=== PATIENT | female | born 1995 | race Caucasian/White ===

== ENCOUNTER → 2017-03-23 | Outpatient (CLI) | payer OTHER ==
--- NOTE | 2017-03-24 08:02 | USB ---
Reason for exam: clinical finding. Indicated problem(s): lump or thickening in the left breast. Physical Findings: Nurse Summary: A 1cm nodule in the left breast at 11 o'clock (nurse mj). US Breast Limited LT Left breast ultrasound demonstrates a 2.0 x 2.1 x 1.3cm oval, circumscribed, solid, hypoechoic lesion at 10 o'clock, posterior through transmission is present. This is most suggestive of a benign fibroadenoma for which a 6 month follow up is recommended. These results were verbally communicated with the patient and result sheet given to the patient on 03/23/17. ASSESSMENT: Probably benign, BI-RAD 3 RECOMMENDATION: 1. Ultrasound of the left breast in 6 months. 2. Surgical consultation of the left breast. Excision can be performed if symptomatic. GASTON
== END | disposition home or self-care (01) ==
LOC: RADUSWWP 13:00
PROVIDERS: ATTEND Family Medicine
DX: N63.20 Unspecified lump in the left breast, unspecified quadrant (principal)

== ENCOUNTER 2017-10-22 17:42 | Emergency (ER) | payer OTHER ==
[2017-10-22 18:04] VITALS: BP 126/68; PULSE 79; RESP 18; TEMP 97.2
--- NOTE | 2017-10-22 19:01 | ED ---
Skin/Abscess/FB HPI - General Chief complaint: Skin/Abscess/Foreign Body Stated complaint: left breast pain Time Seen by Provider: 10/22/17 18:44 Source: patient, RN notes reviewed Mode of arrival: ambulatory Limitations: no limitations - History of Present Illness Initial comments: This is a 22-year-old female who presents to the emergency department with chief complaint of left breast pain. Patient states that a year and a half ago she was diagnosed with a fibroadenoma of the left breast. She states that she did have an ultrasound performed at that time. She was referred to several surgeons by her primary care provider but never followed up. Patient states that she is on the end of her current menstrual cycle. She states that yesterday she developed some pain to the lump in her left breast. She denies any nipple discharge, changes in size of the lump or dimpling of the breast. Denies any recent fevers or chills. Denies chest pain or shortness of breath, abdominal pain, nausea vomiting. - Related Data Allergies Allergy/AdvReac Type Severity Reaction Status Date / Time No Known Allergies Allergy Verified 10/22/17 18:04 Review of Systems ROS Statement: Those systems with pertinent positive or pertinent negative responses have been documented in the HPI. ROS Other: All systems not noted in ROS Statement are negative. Past Medical History Past Medical History: No Reported History History of Any Multi-Drug Resistant Organisms: None Reported Past Surgical History: No Surgical Hx Reported Past Psychological History: No Psychological Hx Reported Smoking Status: Current every day smoker Past Alcohol Use History: None Reported Past Drug Use History: None Reported General Exam - General Exam Comments Initial Comments: General: Awake and alert, well-developed; in no apparent distress. HEENT: Head atraumatic, normocephalic. Pupils are equal, round and reactive to light. Extraocular movements intact. Oropharynx moist without erythema or exudate. Neck: Supple. Normal ROM. Cardiovascular: Regular rate and rhythm. No murmurs, rubs or gallops. Chest symmetrical. Chest Wall: Tender, mobile lump, measuring approximately 2 cm in diameter, at approximately noon superior to the left nipple. Respiratory: Lungs clear to auscultation bilaterally. No wheezes, rales or rhonchi. Normal respiratory effort with no use of accessory muscles. Musculoskeletal: Normal ROM, no tenderness bilateral upper and lower extremities. Ambulating normally. Skin: [place], warm and dry without rashes or lesions. Neurological: Alert and oriented x3. CN II-XII grossly intact. Speech is fluent and answers are appropriate. No focal neuro deficits. Psychiatric: Normal mood and affect. No overt signs of depression or anxiety noted. Limitations: no limitations Course Vital Signs 10/22/17 18:00 Temperature 97.2 F L Pulse Rate 79 Respiratory 18 Rate Blood Pressure 126/68 O2 Sat by Pulse 97 Oximetry Medical Decision Making - Medical Decision Making This is a 22-year-old female who presents to the emergency department with chief complaint of tender left breast lump. Patient was diagnosed with fibroadenoma the left breast a year and a half ago. She states that yesterday it became painful. On physical examination, there is a tender, mobile lump in the left breast. Patient will be given an order for a mammogram and will be referred to Dr. Zeina Jessica. Patient's vital signs are stable and she is in no acute distress. She will be discharged home at this time. She is in agreement with plan and voices understanding. All questions were answered. Disposition Clinical Impression: Left breast mass Disposition: HOME SELF-CARE Condition: Good Instructions: Breast Mass (ED) Additional Instructions: Please follow-up with Dr. Zeina Jessica within 1-2 days. Please have mammogram performed. Please follow up with primary care provider within 1-2 days. Return to emergency department if symptoms should worsen or any concerns arise. Is patient prescribed a controlled substance at d/c from ED?: No Referrals: Maria De Jesus Bridges MD [Primary Care Provider] - 1-2 days Jennifer Jessica MD [STAFF PHYSICIAN] - 1-2 days Time of Disposition: 19:03
== END 2017-10-22 19:22 | disposition home or self-care (01) ==
LOC: EC 17:42
DX: N63.0 Unspecified lump in unspecified breast (principal); N64.4 Mastodynia; F17.200 Nicotine dependence, unspecified, uncomplicated
CPT/HCPCS: 99283

== ENCOUNTER 2019-03-29 14:12 | Emergency (ER) | payer OTHER ==
[2019-03-29 14:22] VITALS: RESP 20; TEMP 98
[2019-03-29] MEDS ORDERED: LIDOCAINE 1% INJ 10MG/ML (20 ML MDV) SQ ONE (14:30)
[2019-03-29] MEDS ORDERED: ACETAMINOPHEN TAB 500 MG TAB PO STA (14:30)
[2019-03-29] MEDS ORDERED: DIPH,PERTUS(ACELL)TETVAC-LF 0.5 ML VIAL IM ONE (14:32)
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
[2019-03-29 16:27] VITALS: BP 111/69; PULSE 75
== END 2019-03-29 16:27 | disposition home or self-care (01) ==
LOC: EC 14:12
DX: S21.111A Laceration without foreign body of right front wall of thorax without penetration into thoracic cavity, initial encounter (principal); Z87.891 Personal history of nicotine dependence; Z23 Encounter for immunization; X99.1XXA Assault by knife, initial encounter; Y93.89 Activity, other specified; Y92.009 Unspecified place in unspecified non-institutional (private) residence as the place of occurrence of the external cause
CPT/HCPCS: 90715; 99283; 12002; 90471; J2001

== ENCOUNTER → 2020-08-16 | Outpatient (CLI) | payer OTHER | END | disposition home or self-care (01) | LOC: LABWHC1 16:13 | PROVIDERS: ATTEND Family Medicine | DX: Z20.822 Contact with and (suspected) exposure to COVID-19 (principal) | CPT/HCPCS: U0003; C9803; U0005 ==

== ENCOUNTER 2020-12-22 19:54 | Observation (INO) | payer OTHER ==
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
[2020-12-22 22:37] LABS: Appearance,Urine Clear (Clear); Bacteria,Urine Many /hpf; Bilirubin,Urine Negative (Negative); Blood,Urine Negative (Negative); Color,Urine Colorless; Glucose,Urine (UA) Negative (Negative); Ketones,Urine Negative (Negative); Leukocyte Esterase,Urine Trace (Negative); Mucus,Urine Rare /hpf; Nitrite,Urine Positive (Negative); PH, Urine 6.5 (5.0-8.0); Protein,Urine Negative (Negative); RBC,Urine 2 /hpf (0-5); Specific Gravity,Urine 1.003 (1.001-1.035); Squamous Epithelial Cell,Urine 1 /hpf (0-4); Urobilinogen,Urine <2.0 mg/dL (<2.0); WBC,Urine 2 /hpf (0-5)
[2020-12-22 23:01] LABS: Amphetamine Screen,Urine Not Detected (NotDetected); Barbiturate Screen,Urine Not Detected (NotDetected); Benzodiazepines Screen,Urine Detected (NotDetected); Cocaine Screen,Urine Detected (NotDetected); Methadone Screen, Urine Not Detected (NotDetected); Opiate Screen,Urine Not Detected (NotDetected); Oxycodone Screen, Urine Not Detected (NotDetected); Phencyclidine Screen,Urine Not Detected (NotDetected); Tricyclic Antidepressant,Urine Not Detected (NotDetected); Urn Cannabinoid Scrn Not Detected (NotDetected)
[2020-12-23 00:32] LABS: Basophils # (A) 0.1 k/uL (0-0.2); Basophils % (A) 1 %; Eosinophils # (A) 0.5 k/uL (0-0.7); Eosinophils % (A) 5 %; HCT 38.7 % (34.0-46.0); HGB 12.9 gm/dL (11.4-16.0); Lymphocytes # (A) 1.9 k/uL (1.0-4.8); Lymphocytes % (A) 21 %; MCH 32.8 pg (25.0-35.0); MCHC 33.5 g/dL (31.0-37.0); Mean Platelet Volume 7.9; Monocytes # (A) 0.4 k/uL (0-1.0); Monocytes % (A) 4 %; Neutrophils # (A) 6.1 k/uL (1.3-7.7); Neutrophils % (A) 68 %; Platelet Count 304 k/uL (150-450); RBC 3.94 m/uL (3.80-5.40); RDW 13.7 % (11.5-15.5)
--- NOTE | 2020-12-23 01:10 | US ---
EXAMINATION TYPE: Transabdominal DATE OF EXAM: 12/23/2020 12:42 AM COMPARISON: NONE CLINICAL HISTORY: . Overdose EXAM PERFORMED: Transabdominal (TA) EXAM MEASUREMENTS: GESTATIONAL AGE / DATING Physician Established: Not yet established Dates by LMP: LMP unknown Dates by First Scan: No previous this is first scan Dates by Current Scan for: (12 weeks/1 days) EDC: 07/06/2021 MATERNAL ANATOMY Uterus: 11.2 x 8.8 x 9.0 cm Right Ovary: 3.0 x 2.8 x 3.3 cm Left Ovary: 2.2 x 2.0 x 1.6 cm Post CDS / Adnexa: wnl Presence of free fluid: No Presence of corpus luteal cyst: Right Ovary= 2.4 x 1.8 x 2.0 cm Presence of subchorionic bleed: No GESTATION / SURVEY CRL: 5.5 cm (12 weeks/1 days) MSD: wnl Heart Rate: 153 bpm Rhythm: Normal IUP: Viable IUP Nuchal Translucency 10-14wks (normal less than 3mm): 1mm Single, viable IUP IMPRESSION: Single living intrauterine fetus. The ultrasound gestational age is 12 weeks and 1 day according to t he crown-rump length. No complicating process seen.
[2020-12-23 01:14] LABS: Acetaminophen 20.3 ug/mL; African American GFR (CKD) >90 (>60 ml/min/1.73 sqM); Alcohol <10 mg/dL; Anion Gap 9 mmol/L; Blood Urea Nitrogen 8 mg/dL (7-17); Calcium 9.3 mg/dL (8.4-10.2); Carbon Dioxide 23 mmol/L (22-30); Chloride 104 mmol/L (98-107); Glucose 84 mg/dL (74-99); Non-African American GFR(CKD) >90 (>60 ml/min/1.73 sqM); Potassium 3.5 mmol/L (3.5-5.1); Salicylate <1.0 mg/dL; Sodium 136 mmol/L (137-145)
[2020-12-23] MEDS ORDERED: diphenhydrAMINE 50 MG/ML 1 ML VIAL IVP ONE (02:33)
[2020-12-23] MEDS ORDERED: ONDANSETRON 4 MG/2 ML VIAL IVP PRN (02:33)
[2020-12-23] MEDS ORDERED: NALOXONE 0.4 MG/ML 1 ML VIAL IV PRN (02:33)
[2020-12-23] MEDS ORDERED: ACETYLCYSTEINE IV 10,200 MG in DEXTROSE 5% IN WATER 200 ML IV ONE ×2 (03:00)
[2020-12-23] MEDS: SODIUM CHLORIDE 0.9% 1,000 ML IV SCH ×3 (03:12→18:49)
[2020-12-23 03:56] LABS: INR 0.9 (<1.2); Partial Thromboplastin Time 23.5 sec (22.0-30.0); Prothrombin Time 9.9 sec (9.0-12.0)
[2020-12-23 04:22] LABS: Bilirubin,Unconjugated 0.2 mg/dL (0.0-1.1); Total Bilirubin 0.2 mg/dL (0.2-1.3); Total Protein 6.8 g/dL (6.3-8.2)
[2020-12-23] MEDS ORDERED: ACETYLCYSTEINE IV 3,400 MG in DEXTROSE 5% IN WATER 500 ML IV ONE ×2 (04:30)
[2020-12-23] MEDS ORDERED: ACETYLCYSTEINE IV 6,800 MG in DEXTROSE 5% IN WATER 1,000 ML IV ONE ×2 (08:00)
[2020-12-23 08:41] VITALS: RESP 16
--- NOTE | 2020-12-23 13:33 | P.CN ---
Psychiatric Consult - . Consult date: 12/23/20 Consult:: 12/23/20 13:26 IDENTIFYING DATA: This patient is a 25-year-old female who currently lives with her boyfriend's mother in a house and is unemployed. She has no kids however is 3 months . REASON FOR REFERRAL: Psychiatry was consulted for "suicidal ideations and overdose". HISTORY OF PRESENT ILLNESS: The patient presented to the hospital yesterday with complaints of depression and a suicide attempt after overdosing on Tylenol. Apparently the patient overdosed on Tylenol and was depressed was fairly evasive in the ER. She is 3 months and was petition by police to come in the hospital. Patient was apparently seen hitting herself in the stomach while she was in the ER according to ER report. Patient had a urine drug screen which is positive for cocaine and benzodiazepines. Her Tylenol level was initially 20.3 and dropped down to below 10 however is currently being treated by [facility]. Patient had an ultrasound which showed a living fetus intrauterine approximately 12 weeks and has no complicating process. Patient was seen in the exam room today with her boyfriend at her side. Boyfriend was asked to leave the room and patient was agreeable to speak to assembly instructions writer. She was fairly depressed and evasive during conversation. She claims that she "freaked out" and was mad at her boyfriend at home. She states that she has been having significant mood swings and was feeling impulsive and irritable. She states that she cut her left wrist several times and states that she does not have a history of cutting. She claims that she has been dealing with fluctuations in her mood even prior to being . She claims that she can be "triggered by anything". She is denying any problems in her relationship or any other stressors at this time. She states that her sleep is okay and appetite is okay . At this time patient denies any current suicidal or homical ideations, intent or plan. Patient denies any auditory, visual hallucinations and denies any paranoia or delusions. Patients admits to using cocaine at a alliance party recently and also claims that she smokes cigarettes occasionally. She denies any other recreational drug use. PAST PSYCHIATRIC HISTORY: Patient has a a history of mood disorder. Patient denies being on any psychiatric medications. Patient denies any previous psychiatric hospitalizations. Patient denies any psychiatric outpatient follow- up. Patient denies any history of suicide attempts in the past. PAST MEDICAL HISTORY: denies. ALLERGIES: as per EMR. CHEMICAL DEPENDENCY HISTORY: as per HPI. FAMILY PSYCHIATRIC/SUBSTANCE USE HISTORY: denies SOCIAL HISTORY: Patient was born and raised in [place] and moved to [place]. She states that she completed up to 11th grade of school. 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 She states that she is currently unemployed and is for 3 months. She states that she currently lives with her boyfriend's mother and in her house. She states that she went to [facility] for domestic violence charges in 2019. MENTAL STATUS EXAM: General Appearance: Patient appears to be stated age is alert, guarded/evasive. Patient appears to have poor hygiene and grooming wearing hospital gown with poor eye contact. Behavior: Patient is calmly lying in bed without any agitated behavior. unpredictable Speech: Patient's speech is fluent and nonpressured. Evasive Mood/Affect: Patient reports their mood is "depressed and having mood swings", affect is congruent Suicidality/Homicidality: Patient denies having any suicidal or homicidal ideation intent or plan. Perceptions: Patient denies any visual hallucinations and denies any auditory hallucinations Though content/process: There is no evidence of any delusional thought content and thought process is linear and goal-directed. Focused on her symptoms. Evasive. Memory and concentration: AOX3, grossly intact for the purposes of this session. Can spell "WORLD" backwards Judgment and insight: poor IMPRESSIONS: Mood disorder unspecified, likely bipolar disorder vs major depressive disorder Cocaine abuse Nicotine dependence PLAN: -At this time patient DOES meet criteria for inpatient psychiatric admission. -Would recommend the following medication changes/additions: We will await until patient is medically cleared to start medications -initiate 1:1 sitter for safety. Suicide and elopement precautions. Patient is to remain on these precautions and sitter until she is transferred to the mental health unit after being medically cleared. -Cannot leave AMA at this time. Patient will need a petition and certification if attempting to leave AMA. -When medically stable, patient is eligible for transfer to a psych bed when available. -Communicated plan to patient's nurse -Psychiatry will sign off at this time -Please contact with any questions.
[2020-12-23 18:50] VITALS: BP 126/78; PULSE 80; TEMP 98.3
[2020-12-23 22:34] LABS: ALT 19 U/L (4-34); AST 19 U/L (14-36)
[2020-12-23 22:37] LABS: Prothrombin Time 10.3 sec (9.0-12.0)
[2020-12-23 22:38] LABS: Basophils % (A) 0 %; Eosinophils # (A) 0.3 k/uL (0-0.7); Eosinophils % (A) 4 %; HCT 35.2 % (34.0-46.0); HGB 11.7 gm/dL (11.4-16.0); Lymphocytes # (A) 1.6 k/uL (1.0-4.8); Lymphocytes % (A) 18 %; MCH 33.4 pg (25.0-35.0); MCHC 33.3 g/dL (31.0-37.0); MCV 100.2 fL (80.0-100.0); Macrocytosis Slight; Mean Platelet Volume 7.5; Monocytes # (A) 0.3 k/uL (0-1.0); Monocytes % (A) 3 %; Neutrophils # (A) 6.4 k/uL (1.3-7.7); Neutrophils % (A) 73 %; Platelet Count 269 k/uL (150-450); RBC 3.51 m/uL (3.80-5.40); RDW 13.6 % (11.5-15.5); WBC 8.7 k/uL (3.8-10.6)
--- NOTE | 2020-12-24 00:11 | P.HPIM ---
History of Present Illness H&P Date: 12/23/20 Chief Complaint: Suicidal ideation with an attempt of tylenol overdose, Depr ession Ms. Jha is a 25-year-old female who is currently 3 months , with a past medical history of polysubstance abuse, nicotine dependence brought in by her boyfriend as she was trying to kill herself by slitting her left wrist. When I went into the room to to evaluate the patient, patient and her boyfriend with lying in a cuddling position in the bed. Patient states that she does not know why she came into the hospital, denies being depressed. But her boyfriend who is at the bedside mentions that the patient has been depressed lately and was also having mood swings. Patient is aware that she is 3 months but has been smoking drinking and using drugs. Patient's urine drug screen was positive for cocaine and benzos. Apparently the patient also overdosed on Tylenol p.m. and Motrin. In the ER patient had ultrasound showing single viable intrauterine . Patient's vitals at the time of admission temperature 98.6, heart rate 97, respiratory rate 18, blood pressure 127/86 and saturating at 98% on room air. On reviewing the patient's labs white count of 8.7, hemoglobin 9.7, platelets 269. Initial Tylenol level of 20 point 3 repeat is less than 10. Urine drug screen is positive for benzos and cocaine. Alcohol level of less than 10 urine analysis is positive for nitrites, trace leukocyte Estrace. Review of Systems REVIEW OF SYSTEMS: CONSTITUTIONAL: No fever, no malaise, no fatigue. HEENT: No headache, no neck stiffness, no blurring of vision CARDIOVASCULAR: No chest pain, no palpitations PULMONARY: No cough or difficulty in breathing GASTROINTESTINAL: No Abdominal pain nausea vomiting or diarrhea NEUROLOGICAL: No weakness of extremities HEMATOLOGICAL: Denies any bleeding or petechiae. GENITOURINARY: Denies any burning micturition, frequency, or urgency. MUSCULOSKELETAL/RHEUMATOLOGICAL: Denies any joint pain, swelling, or any muscle pain. ENDOCRINE: Denies polyuria polydipsia or heat or cold intolerance The rest of the 14-point review of systems is negative. Past Medical History Past Medical History: No Reported History History of Any Multi-Drug Resistant Organisms: None Reported Past Surgical History: No Surgical Hx Reported Past Psychological History: No Psychological Hx Reported Smoking Status: Current every day smoker Past Alcohol Use History: None Reported Past Drug Use History: None Reported Medications and Allergies Home Medications Medication Instructions Recorded Confirmed Type Ondansetron Odt [Zofran Odt] 4 mg PO Q6H PRN 12/22/20 12/22/20 History Tqw-Evpg-Wtfzl Acid 1 cap PO DAILY 12/22/20 12/22/20 History [-U Capsule (formulary)] Allergies Allergy/AdvReac Type Severity Reaction Status Date / Time No Known Allergies Allergy Verified 12/22/20 21:53 Physical Exam Vitals: Vital Signs Temp Pulse Resp BP Pulse Ox 12/23/20 13:25 98.6 F 82 16 103/61 100 12/23/20 10:24 80 16 100 12/23/20 08:39 98.2 F 79 16 98/62 100 12/23/20 06:32 98.4 F 78 19 124/93 99 12/22/20 21:49 53 L 18 12/22/20 20:00 98.6 F 97 18 127/86 98 PHYSICAL EXAMINATION: GENERAL: Comfortably lying up in the bed appears to be no acute distress. HEENT: Pupils are round and equally reacting to light. EOMI. No scleral icterus. No conjunctival pallor. CARDIOVASCULAR: S1 and S2 present. No murmurs, rubs, or gallops. PULMONARY: Bilateral breath sounds positive. No wheeze or crackles.. ABDOMEN: Soft,non -tender, normal bowel sounds. No guarding or rigidity. MUSCULOSKELETAL: No joint swelling or deformity. EXTREMITIES: No edema. Superficial slit negro on the left forarm and wrist NEUROLOGICAL: Gross neurological examination did not reveal any focal deficits. SKIN:No rash Results CBC & Chem 7: 12/23/20 22:00 12/23/20 00:07 Labs: Abnormal Lab Results - Last 24 Hours (Table) 12/22/20 12/22/20 12/23/20 Range/Units 22:11 22:11 00:07 Sodium 136 L (137-145) mmol/L Urine Nitrite Positive H (Negative) Ur Leukocyte Esterase Trace H (Negative) Urine Bacteria Many H (None) /hpf Urine Mucus Rare H (None) /hpf U Benzodiazepines Scrn Detected H (NotDetected) Urine Cocaine Screen Detected H (NotDetected) Assessment and Plan Assessment: ASSESSMENT Acute Tylenol toxicity Suicidal attempt Anxiety with depression 3 months UDS positive for benzos and cocaine UTI in PLAN patient has been started on acetylcysteine treatment for Tylenol toxicity. Repeat Tylenol level less than 10. She was given a dose of ceftriaxone in the ED. Will continue with Keflex for UTI in . Psychiatric on board and following the patient. Patient educated on the importance of staying away from alcohol smoking and illicit drugs, in view of her . Overall prognosis is guarded secondary to ongoing complicated medical issues. Further recommendations to follow depending on the progress of the patient.
[2020-12-24] MEDS ORDERED: PRENATAL VIT-IRON-FOLIC ACID 1 EACH CAP PO SCH (09:00)
[2020-12-24] MEDS ORDERED: CEPHALEXIN 500 MG CAP PO SCH (09:00)
== END 2020-12-24 02:17 | disposition psychiatric hospital, planned readmission (93) ==
LOC: EC 19:54 → 5NMEDONC 12-23 02:33 → INTOOBSV 12-23 02:33 → 5NMEDONC 12-23 17:13 → UNDODISIN 12-24 02:17
PROVIDERS: ADMIT Hospitalist; ATTEND Hospitalist
DX: O9A.211 Injury, poisoning and certain other consequences of external causes complicating pregnancy, first trimester (principal); T39.1X2A Poisoning by 4-Aminophenol derivatives, intentional self-harm, initial encounter; T39.312A Poisoning by propionic acid derivatives, intentional self-harm, initial encounter; O99.341 Other mental disorders complicating pregnancy, first trimester; F32.9 Major depressive disorder, single episode, unspecified; F41.8 Other specified anxiety disorders; F43.21 Adjustment disorder with depressed mood; R45.851 Suicidal ideations; O23.41 Unspecified infection of urinary tract in pregnancy, first trimester; O99.331 Smoking (tobacco) complicating pregnancy, first trimester; F17.210 Nicotine dependence, cigarettes, uncomplicated; O99.321 Drug use complicating pregnancy, first trimester; F14.10 Cocaine abuse, uncomplicated; Z3A.12 12 weeks gestation of pregnancy
CPT/HCPCS: 82075; 96365; 96366; 96367; 96375; 99291; 36415; 80048; 80076; 84450; 84460; 85025; 85610; 85730; 81001; 81025; 80306; 80143; 80179; 76813; 76801; G0378 ×2; G0480; J1200; J0696; J0132; 80320

== ENCOUNTER 2020-12-24 02:16 | Inpatient (IN) | payer MEDICAID ==
[2020-12-24] MEDS ORDERED: MAG HYDROX/AL HYDROX/SIMETH 30 ML CUP PO PRN (03:58)
[2020-12-24] MEDS ORDERED: MAGNESIUM HYDROXIDE 2,400 MG/10 ML CUP PO PRN (03:58)
[2020-12-24] MEDS: PRENATAL VIT-IRON-FOLIC ACID 1 EACH CAP PO SCH (09:04)
[2020-12-24] MEDS ORDERED: NICOTINE POLACRILEX 2 MG GUM BUCCAL PRN (11:23)
--- NOTE | 2020-12-24 11:23 | P.HP ---
Psychiatric H&P - . H&P Date: 12/24/20 History & Physical: Allergies Allergy/AdvReac Type Severity Reaction Status Date / Time No Known Allergies Allergy Verified 12/24/20 04:02 Vital Signs Temp 97.6 F 12/24/20 02:29 Pulse 70 12/24/20 02:29 Resp 16 12/24/20 02:29 BP 94/61 12/24/20 02:29 Pulse Ox 98 12/24/20 02:29 Intake & Output 12/23/20 12/24/20 12/24/20 18:59 06:59 18:59 Weight 70.364 kg 12/24/20 10:43 IDENTIFYING DATA: Patient is a 25-year-old female who currently lives with her boyfriend's mother in a house and is unemployed. She has no kids however is 3 months . HISTORY OF PRESENT ILLNESS: The patient presented to the hospital initially with complaints of depression and a suicide attempt after overdosing on Tylenol. Apparently the patient overdosed on Tylenol and was depressed was fairly evasive in the ER. She is 3 months and was petition by police to come in the hospital. Patient was apparently seen hitting herself in the stomach while she was in the ER according to ER report. Patient had a urine drug screen which is positive for cocaine and benzodiazepines. Her Tylenol level was initially 20.3 and dropped down to below 10 however is currently being treated by [facility]. Patient had an ultrasound which showed a living fetus intrauterine approximately 12 weeks and has no complicating process. Patient was seen yesterday by keno writer in the ED. She was fairly depressed and evasive during conversation. She claims that she "freaked out" and was mad at her boyfriend at home. She states that she has been having significant mood swings and was feeling impulsive and irritable. She states that she cut her left wrist several times and states that she does not have a history of cutting. She claims that she has been dealing with fluctuations in her mood even prior to being . She claims that she can be "triggered by anything". She is denying any problems in her relationship or any other stressors at this time. She states that her sleep is okay and appetite is okay. Patient was admitted to the mental health unit after receiving [facility] in the ER and being medically cleared. Patient was seen today once again for psychiatric evaluation. She states that he is feeling "depressed today" and relates it back to being on the unit and feeling down. She has a soft tone of voice and poor eye contact. She was fairly guarded/evasive about the events that occurred prior to her coming into the hospital. She states that "I never do stuff like this" and attempted to blame it on the Xanax that she was using. She is fairly vague about how much she was using and also the cocaine that she was using. She states that she slept fairly last night. She claims that she will be taking medications and was agreeable to take Zoloft today. At this time patient denies any current suicidal or homical ideations, intent or plan. Patient denies any auditory, visual hallucinations and denies any paranoia or delusions. Patients admits to using cocaine at a libertarian recently and also claims that she smokes cigarettes occasionally. She denies any other recreational drug use. Patient denies any history of manic episodes including increased energy, decreased need for sleep and risky behavior. PAST PSYCHIATRIC HISTORY: Patient has a a history of a possible mood disorder. Patient denies being on any psychiatric medications. Patient denies any previous psychiatric hospitalizations. Patient denies any psychiatric outpatient follow- up. Patient denies any history of suicide attempts in the past. PAST MEDICAL HISTORY: denies. ALLERGIES: as per EMR. CHEMICAL DEPENDENCY HISTORY: as per HPI. FAMILY PSYCHIATRIC/SUBSTANCE USE HISTORY: denies SOCIAL HISTORY: Patient was born and raised in [place] and moved to [place]. She states that she completed up to 11th grade of school. 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 She states that she is currently unemployed and is for 3 months. She states that she currently lives with her boyfriend's mother and in her house. She states that she went to intermediate for domestic violence charges in 2019. MENTAL STATUS EXAM: General Appearance: Patient appears to be stated age is alert, guarded/evasive. Patient appears to have poor hygiene and grooming wearing hospital gown with poor eye contact. Behavior: Patient is calmly lying in bed without any agitated behavior. Speech: Patient's speech is nonpressured. Evasive. Mumbles. Soft tone of voice. Mood/Affect: Patient reports their mood is "depressed", affect is congruent and constricted Suicidality/Homicidality: Patient denies having any suicidal or homicidal ideation intent or plan. Perceptions: Patient denies any visual hallucinations and denies any auditory hallucinations Though content/process: There is no evidence of any delusional thought content and thought process is linear and goal-directed. [place] Memory and concentration: AOX3, grossly intact for the purposes of this session. Can spell "WORLD" backwards Judgment and insight: poor, improving mildly STRENGTHS/WEAKNESSES: strength is that patient is [resilient]. Weakness is that patient [has poor judgment and is impulsive] INTELLECT: [average] IMPRESSIONS: Mood disorder unspecified, likely major depressive disorder Cocaine abuse Nicotine dependence PLAN: -Patient is admitted under [voluntary] status to MHU for stabilization of psychiatric symptoms and safety. Patient has signed [adult voluntary form and] [medication consent] and is placed in patient's chart. -Medications : Will start patient on Zoloft 50 mg daily for mood/anxiety. Melatonin 3 mg daily at bedtime when necessary for insomnia. -Zofran when necessary for nausea. -Haldol PRN for agitation/aggression [-Patient was counselled on substance abuse and desired to cut back on use] -Patient was informed of the risks, benefits and side effects of the medication and patient verbally consented to taking the medications. Patient signed med consent form and was placed in chart. -Internal Medicine consult to perform medical evaluation and physical. -NRT - nicorette gum -SW on board for discharge planning. Encourage patient to participate in groups to work on coping skills.
[2020-12-24] MEDS: SERTRALINE 50 MG TAB PO SCH (13:05)
[2020-12-24 16:50] LABS: Albumin 4.1 g/dL (3.5-5.0); Bilirubin,Unconjugated 0.4 mg/dL (0.0-1.1); Total Bilirubin 0.4 mg/dL (0.2-1.3)
--- NOTE | 2020-12-24 20:10 | P.CONS ---
History of Present Illness - History of Present Illness This is a pleasant 25 years old female with no significant past medical history. Presents today medical floor yesterday with done in all over those with suicidal intention, stabilization she was transferred to mental health unit today after medical stabilization Today patient was seen walking the hallways freely and comfortably with no distress. She denies any specific complaints except for mild nausea. She is 3 months and she follows up with Dr. Garcia. Patient states this is her first She denies chest pain or dyspnea. No abdominal pain. No vomiting. No change in urine or bowel habits. She denies any dysuria or change in frequency or urgency. No suprapubic tenderness. She states that her urine is origin color. No leg pain or tenderness. When I asked her she denies smoking, alcohol however I told her about her urine test is positive for cocaine and benzodiazepine and counseled her to avoid these substances, risks including but not limited to stroke, cardiac arrest, cardiac attack, or damage and/or are explained for the patient and she looks understandable. Vitas looks stable Labs from yesterday are unremarkable including CBC, BMP, liver enzymes. Repeat liver enzymes are within reference range Urine analysis is positive for nitrites but WBC is normal at 2. Salicylate, succumbing and symmetrical levels and the blood are negative Urine drug screen is positive for benzodiazepine and cocaine CONSTITUTIONAL: No fever, no malaise, no fatigue. HEENT: No recent visual problems or hearing problems. Denied any sore throat. CARDIOVASCULAR: No orthopnea, PND, no palpitations, no syncope. PULMONARY: No shortness of breath, no cough, no hemoptysis. GASTROINTESTINAL: No diarrhea, no vomiting, no abdominal pain. Normoactive bowel sounds. NEUROLOGICAL: No headaches, no weakness, no numbness. HEMATOLOGICAL: Denies any bleeding or petechiae. GENITOURINARY: Denies any burning micturition, frequency, or urgency. MUSCULOSKELETAL/RHEUMATOLOGICAL: Denies any joint pain, swelling, or any muscle pain. ENDOCRINE: Denies any polyuria or polydipsia. Past Medical History Past Medical History: No Reported History History of Any Multi-Drug Resistant Organisms: None Reported Past Surgical History: No Surgical Hx Reported Past Psychological History: No Psychological Hx Reported Smoking Status: Current every day smoker Past Alcohol Use History: None Reported Past Drug Use History: None Reported Medications and Allergies Home Medications Medication Instructions Recorded Confirmed Type Ondansetron Odt [Zofran Odt] 4 mg PO Q6H PRN 12/22/20 12/22/20 History Owj-Ldwh-Mconl Acid 1 cap PO DAILY 12/22/20 12/22/20 History [-U Capsule (formulary)] Allergies Allergy/AdvReac Type Severity Reaction Status Date / Time No Known Allergies Allergy Verified 12/24/20 04:02 Physical Exam Vitals: Vital Signs Temp Pulse Resp BP Pulse Ox 12/24/20 02:29 97.6 F 70 16 94/61 98 Intake and Output 12/23/20 12/24/20 12/24/20 22:59 06:59 14:59 Other: Weight 70.364 kg GENERAL: The patient is alert and oriented x3, not in any acute distress. Well developed, well nourished. HEENT: Pupils are round and equally reacting to light. EOMI. No scleral icterus. No conjunctival pallor. Normocephalic, atraumatic. No pharyngeal erythema. No thyromegaly. CARDIOVASCULAR: S1 and S2 present. No murmurs, rubs, or gallops. PULMONARY: Chest is clear to auscultation, no wheezing or crackles. -ABDOMEN: Soft, nontender, mildly distended from her , normoactive bowel sounds. No palpable organomegaly. MUSCULOSKELETAL: No joint swelling or deformity. EXTREMITIES: No cyanosis, clubbing, or pedal edema. NEUROLOGICAL: Gross neurological examination did not reveal any focal deficits. SKIN: No rashes. No petechiae Assessment and Plan Assessment: -Depression and other sac illnesses, management as per psychiatric primary team -3 months , no vaginal discharge or specific complaint. Consult obstetric service -Substance abuse with urine toxicology positive for cocaine and benzodiazepine, patient was counseled extensively -Tylenol overdose on the presentation to medical unit. Patient is asymptomatic. Repeat liver enzymes are within normal limits We recommend patient follow up with her PCP And her land mobile radio technician Dr. Garcia in one week after discharge, patient was instructed to the same and she agrees Thanks for consulting us, feel free to contact us for any further questions. We will see the patient on as needed basis
[2020-12-24] MEDS ORDERED: MELATONIN 3 MG TABLET PO PRN (21:00)
[2020-12-25 02:00] LABS: Hemoglobin A1C 4.5 % (4.0-6.0)
--- NOTE | 2020-12-25 08:47 | P.OBCN ---
History of Present Illness Consult date: 12/25/20 Reason for consult: other () History of present illness: The patient is a 25-year-old 1 para 0 admitted through the emergency room after an attempted suicide with Tylenol overdose. She is by her own admission approximately "3 months." Ultrasound demonstrates a live intrauterine approximate 12 weeks according to the record though it is not evident on the record. She is receiving care and has seen her primary head neck surgeon through the [facility] with Dr. Garcia. She denies any problems in the to this point. There is no ongoing bleeding, cramping, or other concerns. Obstetrical history: 1 para 0 with current statistics listed above. EDC is not in evidence and the record as her ultrasound is not available and she is unaware of her current due date. Gynecologic history: Unremarkable with no apparent history of any infections to include STDs. Review of Systems Review of systems is confined to history of present illness. Past Medical History Past Medical History: No Reported History History of Any Multi-Drug Resistant Organisms: None Reported Past Surgical History: No Surgical Hx Reported Past Psychological History: No Psychological Hx Reported Smoking Status: Current every day smoker Past Alcohol Use History: None Reported Past Drug Use History: None Reported Medications and Allergies Home Medications Medication Instructions Recorded Confirmed Type Ondansetron Odt [Zofran Odt] 4 mg PO Q6H PRN 12/22/20 12/22/20 History Bdk-Dcbf-Byoyb Acid 1 cap PO DAILY 12/22/20 12/22/20 History [-U Capsule (formulary)] Allergies Allergy/AdvReac Type Severity Reaction Status Date / Time No Known Allergies Allergy Verified 12/24/20 04:02 Exam In general, this is a well-developed, well-nourished woman in no acute distress. No other examination is warranted nor performed from an obstetrical standpoint as it has been documented by the medical team. Results Abnormal Lab Results - Last 24 Hours (Table) 12/25/20 Range/Units 07:00 TSH 0.130 L (0.465-4.680) mIU/L Assessment and Plan (1) Current Visit: Yes Status: Acute Code(s): Z34.90 - ENCNTR FOR SUPRVSN OF NORMAL , UNSP, UNSP TRIMESTER SNOMED Code(s): 29240307 (2) Attempted suicide Current Visit: No Status: Acute Code(s): T14.91XA - SUICIDE ATTEMPT, INITIAL ENCOUNTER SNOMED Code(s): 09406939 Plan: The patient will continue with inpatient psychiatric care until deemed safe for discharge by the psychiatric team. There is no current necessary obstetrical intervention as the patient is well before viability. She has established care with a provider which can be followed up once the patient is released. Documentation of well-being has been done with ultrasound. I will sign off the case at this point. Please contact me should you need any further obstetrical guidance.
[2020-12-25] MEDS: PRENATAL VIT-IRON-FOLIC ACID 1 EACH CAP PO SCH (09:27)
[2020-12-25] MEDS: SERTRALINE 50 MG TAB PO SCH (09:27)
[2020-12-25] MEDS: SERTRALINE 25 MG TAB PO SCH (11:08)
[2020-12-25] MEDS: ONDANSETRON 4 MG TAB PO PRN ×2 (11:08→18:08)
--- NOTE | 2020-12-25 11:18 | P.PN ---
Progress Note - Text Progress Note Date: 12/25/20 Interval History: Patient was seen [wandering the hallways] and was directable and agreeable to speak with typewriter ribbon winder in the office. Patient appears to be mildly more awake today and more cooperative. She claims that she did not take the Zoloft this morning as she was feeling dizzy and nauseous yesterday after taking the first dose. She states that her mood has improved moderately since yesterday and says the same about her anxiety today. She claims that she has been going to some groups. She was fairly focused on discharge. She claims that she was able to sleep fairly last night. She was seen by MILK HANDLER yesterday for consultation and denied any complaints. At this time patient denies any suicidal or homical ideations, intent or plan. Patient denies any auditory, visual hallucinations and denies any paranoia or delusions. Patient denies any side effects from the medications and has been compliant with meds. Patient claims that she is willing to try the Zoloft at half the dose today and answered her questions about the side effects and the benefits of the medication. Mental Status Exam: General Appearance: Patient appears to be stated age is alert, mildly more cooperative today. Patient appears to be improving mildly hygiene and grooming wearing hospital gown. Her eye contact today Behavior: Patient is calmly lying in bed without any agitated behavior. Speech: Patient's speech is nonpressured. Mumbles. Soft tone of voice. [place] Mood/Affect: Patient reports their mood is "a bit better", affect is congruent and constricted Suicidality/Homicidality: Patient denies having any suicidal or homicidal ideation intent or plan. Perceptions: Patient denies any visual hallucinations and denies any auditory hallucinations Though content/process: There is no evidence of any delusional thought content and thought process is linear and goal-directed. [place] Memory and concentration: AOX3, grossly intact for the purposes of this session. Judgment and insight: poor, improving mildly Assessment Mood disorder unspecified, likely major depressive disorder Cocaine abuse Nicotine dependence Plan: -Patient continues to meet criteria for inpatient psychiatric admission for symptom stabilization and safety. Patient has signed [adult voluntary form and] [medication consent] and was placed in patient's chart. -Medications: Decrease Zoloft to 25 mg daily for mood/anxiety. Continue melatonin 3 mg daily at bedtime when necessary for insomnia. Zofran when neces karyn for nausea. -When necessary Haldol for agitation/aggression. -NRT -Nicorette gum -SW on board for discharge planning. Encouraged the patient to participate in milieu. Likely discharge in 1-2 days if patient is taking her medications and improving.
[2020-12-26 06:15] VITALS: BP 98/50; PULSE 71; RESP 12; TEMP 98
[2020-12-26] MEDS: PRENATAL VIT-IRON-FOLIC ACID 1 EACH CAP PO SCH (08:28)
[2020-12-26] MEDS: SERTRALINE 25 MG TAB PO SCH (08:28)
[2020-12-26] MEDS: ONDANSETRON 4 MG TAB PO PRN (08:29)
--- NOTE | 2020-12-26 10:30 | P.DS ---
Providers Date of admission: 12/24/20 02:20 Expected date of discharge: 12/26/20 Attending physician: Bart Garcia MD Consults: 12/24/20 03:58 Consult Physician Routine Consulting Provider: Jody Palmer Consult Reason/Comments: For H & P for Medical Follow Up Do you want consulting provider notified?: Yes 12/24/20 13:40 Consult Physician Routine Consulting Provider: Ajay Peña Consult Reason/Comments: Patient 4 months , O/D on Tylenol Do you want consulting provider notified?: Yes Primary care physician: Maria De Jesus Bridges - Discharge Diagnosis(es) (1) Mood disorder due to known physiological condition, unspecified Current Visit: Yes Status: Acute Priority: High (2) Cocaine abuse Current Visit: Yes Status: Acute Priority: High (3) Nicotine dependence Current Visit: Yes Status: Acute Priority: Low Hospital Course: Admission HPI: Admission note was completed by medical underwriter "Patient is a 25-year-old female who currently lives with her boyfriend's mother in a house and is unemployed. She has no kids however is 3 months . The patient presented to the hospital initially with complaints of depression and a suicide attempt after overdosing on Tylenol. Apparently the patient overdosed on Tylenol and was depressed was fairly evasive in the ER. She is 3 months and was petition by police to come in the hospital. Patient was apparently seen hitting herself in the stomach while she was in the ER according to ER report. Patient had a urine drug screen which is positive for cocaine and benzodiazepines. Her Tylenol level was initially 20.3 and dropped down to below 10 however is currently being treated by [facility]. Patient had an ultrasound which showed a living fetus intrauterine approximately 12 weeks and has no complicating process. Patient was seen yesterday by medical underwriter in the ED. She was fairly depressed and evasive during conversation. She claims that she "freaked out" and was mad at her boyfriend at home. She states that she has been having significant mood swings and was feeling impulsive and irritable. She states that she cut her left wrist several times and states that she does not have a history of cutting. She claims that she has been dealing with fluctuations in her mood even prior to being . She claims that she can be "triggered by anything". She is denying any problems in her relationship or any other stressors at this time. She states that her sleep is okay and appetite is okay. Patient was admitted to the mental health unit after receiving [facility] in the ER and being medically cleared. Patient was seen today once again for psychiatric evaluation. She states that he is feeling "depressed today" and relates it back to being on the unit and feeling down. She has a soft tone of voice and poor eye contact. She was fairly guarded/evasive about the events that occurred prior to her coming into the hospital. She states that "I never do stuff like this" and attempted to blame it on the Xanax that she was using. She is fairly vague about how much she was using and also the cocaine that she was using. She states that she slept fairly last night. She claims that she will be taking medications and was agreeable to take Zoloft today. At this time patient denies any current suicidal or homical ideations, intent or plan. Patient denies any auditory, visual hallucinations and denies any paranoia or delusions. Patients admits to using cocaine at a [employer] recently and also claims that she smokes cigarettes occasionally. She denies any other recreational drug use. Patient denies any history of manic episodes including increased energy, decreased need for sleep and risky behavi or." Hospital course: Upon admission to the unit patient was initially constricted and depressed. Patient was however directable and agreeable to commence treatment and signed adult voluntary form. Patient got along well with other patients on the unit and followed unit protocol. Patient was compliant with the medications and denied any side effects throughout hospital course. Patient was started on Zoloft 50 mg daily however due to nausea and dizziness, dose was reduced down to 25 mg for mood/anxiety. Patient was also started on melatonin 3 mg daily at bedtime when necessary for insomnia. Patient took Zofran as needed for nausea. Patient spoke of her stressors and engaged in therapy both group and individual. Patient was also seen by medical team for history and physical exam. Patient was seen by LITHOGRAPHED PLATE INSPECTOR during her hospitalization. Ultrasound did not show any acute changes and showed intrauterine . Throughout the course of the hospitalization patient gradually improved with regards to mood, anxiety, sleep and became more future oriented with improved insight and judgment. On the day of discharge patient denied any suicidal or homicidal ideations intent or plan denied any auditory or visual hallucinations. Patient endorsed wanting to live for her health and her baby. The patient denied any access to guns or weapons. Patient denied any paranoia and did not endorse any delusions. Patient does have a significant history of substance abuse and was counseled on abstaining from all substances including alcohol and marijuana. Patient was offered however declined inpatient substance-abuse rehab. Patient was also counseled on the medications and need for regular compliance and was encouraged to follow-up with their outpatient appointment for mental health and also for primary care. Prior to discharge a family meeting will be arranged by social worker psychiatric to answer any questions and ensure safety upon discharge. Mental status exam: General Appearance: Patient appears to be tall, stated age is alert, pleasant, and cooperative. Patient is in no acute distress and has improved hygiene and grooming Behavior: Patient is calmly seated without any agitated behavior. Speech: Patient's speech is fluent and nonpressured. Mood/Affect: Patient reports their mood is "good", affect is congruent and euthymic. Suicidality/Homicidality: Patient denies having any suicidal or homicidal ideation intent or plan. Perceptions: Patient denies any auditory or visual hallucinations. Though content/process: There is no evidence of any delusional thought content and thought process is linear and goal-directed. more future oriented Memory and concentration: AOX3, grossly intact for the purposes of this session. Can spell "WORLD" backwards correctly. Judgment and insight: improved with guarded prognosis Impression: Mood disorder unspecified Cocaine abuse Nicotine dependence Plan: -Continue with discharge today as patient has improved and stabilized psychia trically and is not currently an imminent threat to herself and/or others. Patient will remain at chronically elevated risk for harm to self and/or others due to her impulsivity and substance abuse. -Continue medications: Zoloft 25 mg daily for mood/anxiety, melatonin 3 mg daily at bedtime when necessary for insomnia, Zofran when necessary for nausea. -Patient was counseled on the need for medication compliance and appropriate follow-up at mental health and also primary care for medical issues. Patient verbalized understanding and agreed. -Social work to arrange for and conduct family meeting to ensure safety upon discharge and answer any questions/concerns. Social work also to arrange for patients follow up appointments for psychiatric care along with follow up with primary care provider. -Patient counseled on abstaining from recreational drugs and marijuana and alcohol. Was informed/educated on the adverse effects on their physical and mental health. Patient verbally agreed and understood. Patient was offered substance abuse treatment however declined at this time. -Patient was instructed to return to the hospital or seek immediate medical care if their psychiatric or medical symptoms do worsen or reoccur. Allergies Allergy/AdvReac Type Severity Reaction Status Date / Time No Known Allergies Allergy Verified 12/24/20 04:[address] Glu mg/dL 82 12/24/20 15:40 Hemoglobin A1c 4.5 % (4.0-6.0) 12/24/20 15:40 Total Bilirubin 0.4 mg/dL (0.2-1.3) 12/24/20 15:40 Conjugated Bilirubin 0.0 mg/dL (0.0-0.3) 12/24/20 15:40 Unconjugated Bilirubin 0.4 mg/dL (0.0-1.1) 12/24/20 15:40 Delta Bilirubin 0.0 mg/dL (0.0-0.2) 12/24/20 15:40 AST 21 U/L (14-36) 12/24/20 15:40 ALT 21 U/L (4-34) 12/24/20 15:40 Alkaline Phosphatase 39 U/L (38-126) 12/24/20 15:40 Total Protein 7.0 g/dL (6.3-8.2) 12/24/20 15:40 Albumin 4.1 g/dL (3.5-5.0) 12/24/20 15:40 TSH 0.130 mIU/L (0.465-4.680) L 12/25/20 07:00 Vital Signs Temp 98.0 F 12/26/20 06:14 Pulse 71 12/26/20 06:14 Resp 12 12/26/20 06:14 BP 98/50 12/26/20 06:14 Pulse Ox 98 12/24/20 02:29 Patient Condition at Discharge: Stable Plan - Discharge Summary New Discharge Prescriptions: New Melatonin 3 mg PO HS PRN 30 Days tablet PRN Reason: Insomnia Nicotine Polacrilex [Nicorette] 2 mg BUCCAL Q4HR PRN 28 Days gum PRN Reason: Nicotine Cravings Ondansetron [Zofran] 4 mg PO Q8HR PRN 10 Days tab PRN Reason: Nausea And Vomiting Sertraline [Zoloft] 25 mg PO DAILY 30 Days tab Continue Giu-Xwvz-Abvdh Acid [-U Capsule (formulary)] 1 cap PO DAILY Discontinued Ondansetron Odt [Zofran Odt] 4 mg PO Q6H PRN PRN Reason: Nausea Discharge Medication List Yoz-Oxzq-Kccar Acid [-U Capsule (formulary)] 1 cap PO DAILY 12/22/20 [History] Melatonin 3 mg PO HS PRN 30 Days tablet 12/26/20 [Rx] Nicotine Polacrilex [Nicorette] 2 mg BUCCAL Q4HR PRN 28 Days gum 12/26/20 [Rx] Ondansetron [Zofran] 4 mg PO Q8HR PRN 10 Days tab 12/26/20 [Rx] Sertraline [Zoloft] 25 mg PO DAILY 30 Days tab 12/26/20 [Rx] Follow up Appointment(s)/Referral(s): [facility] [Outside] - 12/27/20 9:00 am (Intake with Deanne @ [facility]) Activity/Diet/Wound Care/Special Instructions: Activity and diet as tolerated. Avoid the use of street drugs and alcohol. Take all medications as prescribed. When you are in need of refills on your medications please contact your medical provider and/or outpatient psychiatrist to have this done. Please go to scheduled outpatient appointment for aftercare treatment. If symptoms return or become worse, call the crisis line at and/or go to the nearest emergency room for evaluation. Discharge Disposition: HOME SELF-CARE
== END 2020-12-26 11:49 | disposition home or self-care (01) | DRG 832 ==
LOC: 3MHU 02:20
PROVIDERS: ADMIT Psychiatry & Neurology Psychiatry; ATTEND Psychiatry & Neurology Psychiatry
DX: O99.342 Other mental disorders complicating pregnancy, second trimester (principal); O99.322 Drug use complicating pregnancy, second trimester; O99.332 Smoking (tobacco) complicating pregnancy, second trimester; T39.1X2A Poisoning by 4-Aminophenol derivatives, intentional self-harm, initial encounter; F14.10 Cocaine abuse, uncomplicated; F39 Unspecified mood [affective] disorder; Z3A.12 12 weeks gestation of pregnancy; F41.9 Anxiety disorder, unspecified; G47.00 Insomnia, unspecified; F17.210 Nicotine dependence, cigarettes, uncomplicated; Z79.899 Other long term (current) drug therapy; Z56.0 Unemployment, unspecified; Z71.41 Alcohol abuse counseling and surveillance of alcoholic; Z71.51 Drug abuse counseling and surveillance of drug abuser
CPT/HCPCS: 80076; 83036; 84443

== ENCOUNTER 2023-10-14 12:25 | Emergency (ER) | payer OTHER ==
--- NOTE | 2023-10-14 13:00 | ED ---
General Adult HPI - General Chief complaint: Neuro Symptoms/Deficit Stated complaint: both legs giving out/tingly Time Seen by Provider: 10/14/23 12:30 Source: patient, RN notes reviewed, old records reviewed Mode of arrival: ambulatory Limitations: no limitations - History of Present Illness Initial comments: This is a 28-year-old female who presents to the emergency department stating that she woke up this morning with pain in her upper legs bilaterally she took a Xanax and then took one of her friends Percocets. Patient states she also had tingling below the knees in both legs and both legs felt very weak when she tried to stand up. Patient denies being this way when she went to bed last night. She woke up this morning at 7 AM. Patient denies any fever or chills. Patient Nuys any upper extremity weakness. Patient Nuys chest pain difficulty breathing or shortness of breath. Patient denies any injury. Patient has a headache. Patient appears very anxious. Patient said she felt patient states she did get so weak this morning that she let her self double to go on 3 different occasions. The patient admits to doing Whippets a couple of days ago - Related Data Home Medications Medication Instructions Recorded Confirmed ALPRAZolam [Xanax] 0.5 mg PO TID PRN 10/14/23 10/14/23 Brexpiprazole [Rexulti] 2 mg PO DAILY 10/14/23 10/14/23 Desvenlafaxine [Pristiq ER] 100 mg PO DAILY 10/14/23 10/14/23 traZODone HCL 100 mg PO HS 10/14/23 10/14/23 Allergies Allergy/AdvReac Type Severity Reaction Status Date / Time No Known Allergies Allergy Verified 10/14/23 14:09 Review of Systems ROS Statement: Those systems with pertinent positive or pertinent negative responses have been documented in the HPI. ROS Other: All systems not noted in ROS Statement are negative. Past Medical History Past Medical History: No Reported History History of Any Multi-Drug Resistant Organisms: None Reported Past Surgical History: No Surgical Hx Reported Past Psychological History: No Psychological Hx Reported Smoking Status: Vaper Past Alcohol Use History: None Reported General Exam - General Exam Comments Initial Comments: GENERAL: Patient is well-developed and well-nourished. Patient is nontoxic and well- hydrated and is in mild distress. ENT: Neck is soft and supple. No significant lymphadenopathy is noted. Oropharynx is clear. Moist mucous membranes. Neck has full range of motion without eliciting any pain. EYES: The sclera were anicteric and conjunctiva were pink and moist. Extraocular movements were intact and pupils were equal round and reactive to light. Eyelids were unremarkable. PULMONARY: Unlabored respirations. Good breath sounds bilaterally. No audible rales rhonchi or wheezing was noted. CARDIOVASCULAR: There is a regular rate and rhythm without any murmurs gallops or rubs. ABDOMEN: Soft and nontender with normal bowel sounds. SKIN: Skin is clear with no lesions or rashes and otherwise unremarkable. NEUROLOGIC: Patient is alert and oriented x3. Cranial nerves II through XII are grossly intact. Motor and sensory are also intact. Normal speech, volume and content. Symmetrical smile. His NIH is 0 MUSCULOSKELETAL: Normal extremities with adequate strength and full range of motion. No lower extremity swelling or edema. No calf tenderness. LYMPHATICS: No significant lymphadenopathy is noted PSYCHIATRIC: Normal psychiatric evaluation. Limitations: no limitations Course Vital Signs 10/14/23 10/14/23 12:30 15:22 Temperature 99.2 F 98.9 F Pulse Rate 92 80 Respiratory 18 17 Rate Blood Pressure 119/77 100/65 O2 Sat by Pulse 100 100 Oximetry Medical Decision Making - Medical Decision Making EKG is interpreted by myself but EKG shows a sinus rhythm at 90 bpm parable 129 QRS is 84 QT interval 360 QTc is 407. Patient's EKG shows no ST segment ovation or depression. Was pt. sent in by a medical professional or institution (, PA, CHECKERING MACHINE OPERATOR, urgent care, hospital, or long term...) When possible be specific @ -No Did you speak to anyone other than the patient for history (EMS, parent, family, police, friend...)? What history was obtained from this source @ -No Did you review nursing and triage notes (agree or disagree)? Why? @ -I reviewed and agree with nursing and triage notes Were old charts reviewed (outside hosp., previous admission, EMS record, old EKG, old radiological studies, urgent care reports/EKG's, long term records)? Report findings @ -No old charts were reviewed Differential Diagnosis (chest pain, altered mental status, abdominal pain women, abdominal pain men, vaginal bleeding, weakness, fever, dyspnea, syncope, headache, dizziness, GI bleed, back pain, seizure, CVA, palpatations, mental health, musculoskeletal)? @ -Differential Weakness: Hypoglycemia, shock, sepsis, hyponatremia, anemia, infection, MD, ETOH, adverse medicine reaction, overdose, stroke, this is not meant to be an all-inclusive list. EKG interpreted by me (3pts min.). @ -As above X-rays interpreted by me (1pt min.). @ -Chest x-ray shows no acute abnormality CT interpreted by me (1pt min.). @ -CT of the brain shows no acute abnormality U/S interpreted by me (1pt. min.). @ -None done What testing was considered but not performed or refused? (CT, X-rays, U/S, labs)? Why? @ -None What meds were considered but not given or refused? Why? @ -None Did you discuss the management of the patient with other professionals (professionals i.e. , PA, CHECKERING MACHINE OPERATOR, lab, RT, psych nurse, secondary social studies teacher, boom tender, teacher, aerospace engineer officer armament, shoe parts caser)? Give summary @ -No Was smoking cessation discussed for >3mins.? @ -No Was critical care preformed (if so, how long)? @ -No Were there social determinants of health that impacted care today? How? (Homelessness, low income, unemployed, alcoholism, drug addiction, transportation, low edu. Level, literacy, decrease access to med. care, detention, rehab)? @ -No Was there de-escalation of care discussed even if they declined (Discuss DNR or withdrawal of care, Hospice)? DNR status @ -No What co-morbidities impacted this encounter? (DM, HTN, Smoking, COPD, CAD, Cancer, CVA, ARF, Chemo, Hep., AIDS, mental health diagnosis, sleep apnea, morbid obesity)? @ -None Was patient admitted / discharged? Hospital course, mention meds given and route, prescriptions, significant lab abnormalities, going to OR and other pertinent info. @ -Patient was very anxious and wanted some medicine to calm her down and gave her a milligram of Ativan she felt considerably better. Patient states the symptoms have almost completely resolved at this point. Undiagnosed new problem with uncertain prognosis? @ -No Drug Therapy requiring intensive monitoring for toxicity (Heparin, Nitro, Insulin, Cardizem)? @ -No Were any procedures done? @ -No Diagnosis/symptom? @ -Paresthesias legs Acute, or Chronic, or Acute on Chronic? @ -Acute Uncomplicated (without systemic symptoms) or Complicated (systemic symptoms)? @ -Complicated Side effects of treatment? @ -No Exacerbation, Progression, or Severe Exacerbation? @ -No Poses a threat to life or bodily function? How? (Chest pain, USA, MD, pneumonia, PE, COPD, DKA, ARF, appy, cholecystitis, CVA, Diverticulitis, Homicidal, Suicidal, threat to staff... and all critical care pts) @ -No Diagnosis/symptom? @ -Muscle pain Acute, or Chronic, or Acute on Chronic? @ -Acute Uncomplicated (without systemic symptoms) or Complicated (systemic symptoms)? @ -Uncomplicated Side effects of treatment? @ -None Exacerbation, Progression, or Severe Exacerbation] @ -No Poses a threat to life or bodily function? @ -No - Lab Data Result diagrams: 10/14/23 14:02 10/14/23 14:02 Lab Results 10/14/23 10/14/23 10/14/23 Range/Units 14:02 14:02 14:02 WBC 7.6 (3.8-10.6) k/uL RBC 4.19 (3.80-5.40) m/uL Hgb 13.3 (11.4-16.0) gm/dL Hct 41.0 (34.0-46.0) % MCV 98.0 (80.0-100.0) fL MCH 31.8 (25.0-35.0) pg MCHC 32.5 (31.0-37.0) g/dL RDW 14.6 (11.5-15.5) % Plt Count 339 (150-450) k/uL MPV 7.7 Neutrophils % 67 % Lymphocytes % 22 % Monocytes % 7 % Eosinophils % 2 % Basophils % 1 % Neutrophils # 5.1 (1.3-7.7) k/uL Lymphocytes # 1.7 (1.0-4.8) k/uL Monocytes # 0.5 (0-1.0) k/uL Eosinophils # 0.2 (0-0.7) k/uL Basophils # 0.0 (0-0.2) k/uL PT 10.4 (10.0-12.5) sec INR 0.9 (<1.2) APTT 25.2 (22.0-30.0) sec Sodium 137 (137-145) mmol/L Potassium 4.3 (3.5-5.1) mmol/L Chloride 105 (98-107) mmol/L Carbon Dioxide 22 (22-30) mmol/L Anion Gap 10 mmol/L BUN 7 (7-17) mg/dL Creatinine 0.56 (0.52-1.04) mg/dL Est GFR (CKD-EPI)AfAm >90 (>60 ml/min/1.73 sqM) Est GFR (CKD-EPI)NonAf >90 (>60 ml/min/1.73 sqM) Glucose 91 (74-99) mg/dL Calcium 9.7 (8.4-10.2) mg/dL Magnesium 2.0 (1.6-2.3) mg/dL Total Bilirubin 0.5 (0.2-1.3) mg/dL AST 38 H (14-36) U/L ALT 73 H (4-34) U/L Alkaline Phosphatase 58 (38-126) U/L Creatine Kinase 44 (30-135) U/L Troponin I (0.000-0.034) ng/mL Total Protein 8.6 H (6.3-8.2) g/dL Albumin 5.1 H (3.5-5.0) g/dL Urine Color Urine Appearance (Clear) Urine pH (5.0-8.0) Ur Specific Sterling (1.001-1.035) Urine Protein (Negative) Urine Glucose (UA) (Negative) Urine Ketones (Negative) Urine Blood (Negative) Urine Nitrite (Negative) Urine Bilirubin (Negative) Urine Urobilinogen (<2.0) mg/dL Ur Leukocyte Esterase (Negative) Urine RBC (0-5) /hpf Urine WBC (0-5) /hpf Ur Squamous Epith Cells (0-4) /hpf Urine Bacteria (None) /hpf Urine Mucus (None) /hpf Urine Opiates Screen (NotDetected) Ur Oxycodone Screen (NotDetected) Urine Methadone Screen (NotDetected) Ur Barbiturates Screen (NotDetected) U Tricyclic Antidepress (NotDetected) Ur Phencyclidine Scrn (NotDetected) Ur Amphetamines Screen (NotDetected) U Methamphetamines Scrn (NotDetected) U Benzodiazepines Scrn (NotDetected) Urine Cocaine Screen (NotDetected) U Marijuana (THC) Screen (NotDetected) 10/14/23 10/14/23 Range/Units 14:02 14:13 WBC (3.8-10.6) k/uL RBC (3.80-5.40) m/uL Hgb (11.4-16.0) gm/dL Hct (34.0-46.0) % MCV (80.0-100.0) fL MCH (25.0-35.0) pg MCHC (31.0-37.0) g/dL RDW (11.5-15.5) % Plt Count (150-450) k/uL MPV Neutrophils % % Lymphocytes % % Monocytes % % Eosinophils % % Basophils % % Neutrophils # (1.3-7.7) k/uL Lymphocytes # (1.0-4.8) k/uL Monocytes # (0-1.0) k/uL Eosinophils # (0-0.7) k/uL Basophils # (0-0.2) k/uL PT (10.0-12.5) sec INR (<1.2) APTT (22.0-30.0) sec Sodium (137-145) mmol/L Potassium (3.5-5.1) mmol/L Chloride (98-107) mmol/L Carbon Dioxide (22-30) mmol/L Anion Gap mmol/L BUN (7-17) mg/dL Creatinine (0.52-1.04) mg/dL Est GFR (CKD-EPI)AfAm (>60 ml/min/1.73 sqM) Est GFR (CKD-EPI)NonAf (>60 ml/min/1.73 sqM) Glucose (74-99) mg/dL Calcium (8.4-10.2) mg/dL Magnesium (1.6-2.3) mg/dL Total Bilirubin (0.2-1.3) mg/dL AST (14-36) U/L ALT (4-34) U/L Alkaline Phosphatase (38-126) U/L Creatine Kinase (30-135) U/L Troponin I <0.012 (0.000-0.034) ng/mL Total Protein (6.3-8.2) g/dL Albumin (3.5-5.0) g/dL Urine Color Colorless Urine Appearance Cloudy H (Clear) Urine pH 7.5 (5.0-8.0) Ur Specific Sterling 1.004 (1.001-1.035) Urine Protein Negative (Negative) Urine Glucose (UA) Negative (Negative) Urine Ketones Negative (Negative) Urine Blood Negative (Negative) Urine Nitrite Negative (Negative) Urine Bilirubin Negative (Negative) Urine Urobilinogen <2.0 (<2.0) mg/dL Ur Leukocyte Esterase Large H (Negative) Urine RBC 2 (0-5) /hpf Urine WBC 11 H (0-5) /hpf Ur Squamous Epith Cells 11 H (0-4) /hpf Urine Bacteria Moderate H (None) /hpf Urine Mucus Rare H (None) /hpf Urine Opiates Screen Not Detected (NotDetected) Ur Oxycodone Screen Not Detected (NotDetected) Urine Methadone Screen Not Detected (NotDetected) Ur Barbiturates Screen Not Detected (NotDetected) U Tricyclic Antidepress Not Detected (NotDetected) Ur Phencyclidine Scrn Not Detected (NotDetected) Ur Amphetamines Screen Not Detected (NotDetected) U Methamphetamines Scrn Not Detected (NotDetected) U Benzodiazepines Scrn Detected H (NotDetected) Urine Cocaine Screen Not Detected (NotDetected) U Marijuana (THC) Screen Not Detected (NotDetected) Disposition Clinical Impression: Muscle pain, Paresthesias Disposition: HOME SELF-CARE Condition: Good Instructions (If sedation given, give patient instructions): Paresthesia (ED) Additional Instructions: Patient is to return to the emergency department if any symptoms worsen or there are any new symptoms. Is patient prescribed a controlled substance at d/c from ED?: No Referrals: Maria De Jesus Bridges MD [Primary Care Provider] - 1-2 days Time of Disposition: 16:49
--- NOTE | 2023-10-14 13:43 | CT ---
EXAMINATION TYPE: CT brain wo con CT DLP: 1111.4 mGycm, Automated exposure control for dose reduction was used. DATE OF EXAM: 10/14/2023 1:33 PM COMPARISON: None. CLINICAL INDICATION:Female, 28 years old with history of Neuro deficit, acute, stroke suspected, Legs giving out, tingling TECHNIQUE: Brain: Multiple axial CT images of the brain were obtained without IV contrast. . Coronal and sagitta l reformats reviewed. FINDINGS: Brain: Extra-axial spaces: No abnormal extra-axial fluid collections. Ventricular system: Within normal limits Cerebral parenchyma: No acute intraparenchymal hemorrhage or mass effect. The meadows-white junction is well differentiated. Cerebellum: Unremarkable. Mass effect: No evidence of midline shift. Intracranial vasculature: unremarkable Soft tissues: Normal. Calvarium/osseous structures: No depressed skull fracture. Paranasal sinuses and mastoid air cells: Clear Visualized orbits: Orbital contents are intact. IMPRESSION: No acute intracranial process.
--- NOTE | 2023-10-14 13:51 | XR ---
EXAMINATION TYPE: XR chest 2V DATE OF EXAM: 10/14/2023 1:34 PM COMPARISON: None TECHNIQUE: XR chest 2V Frontal and lateral views of the chest. CLINICAL INDICATION:Female, 28 years old with history of altered mental status; FINDINGS: Lungs/Pleura: There is no evidence of pleural effusion, focal consolidation, or pneumothorax. Pulmonary vascularity: Unremarkable. Heart/mediastinum: Cardiomediastinal silhouette is unremarkable. Musculoskeletal: No acute osseous pathology. IMPRESSION: No acute cardiopulmonary disease/process.
[2023-10-14] MEDS: SODIUM CHLORIDE 0.9% 500 ML 500 ML IV STA (14:14)
[2023-10-14 14:17] LABS: Basophils % (A) 1 %; Eosinophils # (A) 0.2 k/uL (0-0.7); Eosinophils % (A) 2 %; HGB 13.3 gm/dL (11.4-16.0); Lymphocytes # (A) 1.7 k/uL (1.0-4.8); Lymphocytes % (A) 22 %; MCH 31.8 pg (25.0-35.0); MCHC 32.5 g/dL (31.0-37.0); Mean Platelet Volume 7.7; Monocytes # (A) 0.5 k/uL (0-1.0); Monocytes % (A) 7 %; Neutrophils # (A) 5.1 k/uL (1.3-7.7); Neutrophils % (A) 67 %; Platelet Count 339 k/uL (150-450); RBC 4.19 m/uL (3.80-5.40); RDW 14.6 % (11.5-15.5); WBC 7.6 k/uL (3.8-10.6)
[2023-10-14 14:28] LABS: INR 0.9 (<1.2); Partial Thromboplastin Time 25.2 sec (22.0-30.0); Prothrombin Time 10.4 sec (10.0-12.5)
[2023-10-14 14:37] LABS: ALT 73 U/L (4-34); AST 38 U/L (14-36); African American GFR (CKD) >90 (>60 ml/min/1.73 sqM); Albumin 5.1 g/dL (3.5-5.0); Alkaline Phosphatase 58 U/L (38-126); Anion Gap 10 mmol/L; Blood Urea Nitrogen 7 mg/dL (7-17); Calcium 9.7 mg/dL (8.4-10.2); Carbon Dioxide 22 mmol/L (22-30); Chloride 105 mmol/L (98-107); Creatine Kinase 44 U/L (30-135); Glucose 91 mg/dL (74-99); Non-African American GFR(CKD) >90 (>60 ml/min/1.73 sqM); Potassium 4.3 mmol/L (3.5-5.1); Sodium 137 mmol/L (137-145); Total Bilirubin 0.5 mg/dL (0.2-1.3); Total Protein 8.6 g/dL (6.3-8.2)
[2023-10-14 14:55] LABS: Appearance,Urine Cloudy (Clear); Bacteria,Urine Moderate /hpf; Bilirubin,Urine Negative (Negative); Blood,Urine Negative (Negative); Color,Urine Colorless; Glucose,Urine (UA) Negative (Negative); Ketones,Urine Negative (Negative); Leukocyte Esterase,Urine Large (Negative); Mucus,Urine Rare /hpf; Nitrite,Urine Negative (Negative); PH, Urine 7.5 (5.0-8.0); Protein,Urine Negative (Negative); RBC,Urine 2 /hpf (0-5); Specific Gravity,Urine 1.004 (1.001-1.035); Squamous Epithelial Cell,Urine 11 /hpf (0-4); Urobilinogen,Urine <2.0 mg/dL (<2.0); WBC,Urine 11 /hpf (0-5)
[2023-10-14 15:00] LABS: Phencyclidine Screen,Urine Not Detected (NotDetected); Urn Cannabinoid Scrn Not Detected (NotDetected)
[2023-10-14 15:01] LABS: Amphetamine Screen,Urine Not Detected (NotDetected); Barbiturate Screen,Urine Not Detected (NotDetected); Benzodiazepines Screen,Urine Detected (NotDetected); Cocaine Screen,Urine Not Detected (NotDetected); Methadone Screen, Urine Not Detected (NotDetected); Opiate Screen,Urine Not Detected (NotDetected); Oxycodone Screen, Urine Not Detected (NotDetected); Tricyclic Antidepressant,Urine Not Detected (NotDetected)
[2023-10-14] MEDS: LORazepam 1 MG TAB PO STA (16:18)
[2023-10-14 17:19] VITALS: BP 88/50; PULSE 78; RESP 18; TEMP 98.4
== END 2023-10-14 17:19 | disposition home or self-care (01) ==
LOC: EC 12:25
DX: M79.10 Myalgia, unspecified site (principal); R20.2 Paresthesia of skin; F17.290 Nicotine dependence, other tobacco product, uncomplicated
CPT/HCPCS: 36415; 70450; 71046; 80053; 80306; 81001; 82550; 83735; 84484; 85025; 85610; 85730; 93005; 96360; 99284

== ENCOUNTER 2023-10-28 13:52 | Emergency (ER) | payer OTHER ==
[2023-10-28 14:27] VITALS: BP 95/59; PULSE 77; RESP 16; TEMP 97.6
== END 2023-10-28 19:04 | disposition home or self-care (01) ==
LOC: EC 13:52
DX: Z01.812 Encounter for preprocedural laboratory examination (principal)
CPT/HCPCS: 99499

== ENCOUNTER 2024-02-18 14:15 | Emergency (ER) | payer MEDICARE, OTHER ==
[2024-02-18 14:32] VITALS: TEMP 98.7
--- NOTE | 2024-02-18 15:17 | ED ---
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 Patient states she was walking in her kitchen approximately 3 days ago when she slipped and fell hitting the back of her head. She denies loss of consciousness or blood thinner use. This was a fall from standing. Patient states since fall she has been complaining of dizziness, headache and nausea. No other injuries. (Evangelina Jaramillo) This is a 28-year-old female to ER for fall fall with head injury without loss of consciousness (Vincenzo Keen) - Related Data Home Medications Medication Instructions Recorded Confirmed ALPRAZolam [Xanax] 0.5 mg PO TID PRN 10/14/23 10/14/23 Brexpiprazole [Rexulti] 2 mg PO DAILY 10/14/23 10/14/23 Desvenlafaxine [Pristiq ER] 100 mg PO DAILY 10/14/23 10/14/23 traZODone HCL 100 mg PO HS 10/14/23 10/14/23 Allergies Allergy/AdvReac Type Severity Reaction Status Date / Time No Known Allergies Allergy Verified 02/19/24 14:53 Review of Systems ROS Other: All systems not noted in ROS Statement are negative. <Evangelina Jaramillo - Last Filed: 02/18/24 15:16> ROS Other: All systems not noted in ROS Statement are negative. <Vincenzo Keen - Last Filed: 02/22/24 21:31> ROS Statement: Those systems with pertinent positive or pertinent negative responses have been documented in the HPI. Past Medical History Past Medical History: No Reported History History of Any Multi-Drug Resistant Organisms: None Reported Past Surgical History: No Surgical Hx Reported Past Psychological History: No Psychological Hx Reported, Anxiety, Depression Smoking Status: Vaper Past Alcohol Use History: None Reported Past Drug Use History: None Reported <Evangelina Jaramillo - Last Filed: 02/18/24 15:16> General Exam Limitations: no limitations <Evangelina Jaramillo - Last Filed: 02/18/24 15:16> General appearance: alert, in no apparent distress Head exam: Present: atraumatic, normocephalic, normal inspection Eye exam: Present: normal appearance, PERRL, EOMI. Absent: scleral icterus, conjunctival injection, periorbital swelling ENT exam: Present: normal exam, mucous membranes moist Neck exam: Present: normal inspection. Absent: tenderness, meningismus, lymphadenopathy Respiratory exam: Present: normal lung sounds bilaterally. Absent: respiratory distress, wheezes, rales, rhonchi, stridor Cardiovascular Exam: Present: regular rate, normal rhythm, normal heart sounds. Absent: systolic murmur, diastolic murmur, rubs, gallop, clicks GI/Abdominal exam: Present: soft, normal bowel sounds. Absent: distended, tenderness, guarding, rebound, rigid Extremities exam: Present: normal inspection, full ROM, normal capillary refill. Absent: tenderness, pedal edema, joint swelling, calf tenderness Back exam: Present: normal inspection Neurological exam: Present: alert, oriented X3, CN II-XII intact Psychiatric exam: Present: normal affect, normal mood Skin exam: Present: warm, dry, intact, normal color. Absent: rash <Vincenzo Keen - Last Filed: 02/22/24 21:31> - General Exam Comments Initial Comments: Visual Physical Exam Vital signs reviewed General: Well-appearing, nontoxic, no acute distress. Head: Normocephalic, atraumatic Eyes: PERRLA, EOMI, contusion to left lateral eyebrow. (Patient states this is chronic from ). ENT: Airway patent Chest: Nonlabored breathing Skin: No visual rash, normal skin tone Neuro: Alert and oriented 3 Musculoskeletal: No gross abnormalities (Evangelina Jaramillo) Course <Vincenzo Keen - Last Filed: 02/22/24 21:31> Vital Signs 02/18/24 02/18/24 14:28 17:56 Temperature 98.7 F Pulse Rate 101 H 82 Respiratory 20 18 Rate Blood Pressure 110/74 111/76 O2 Sat by Pulse 100 97 Oximetry - Reevaluation(s) Reevaluation #1: 02/18/24 17:22 Medical records reviewed (Vincenzo Keen) Reevaluation #2: 02/18/24 17:22 Patient symptoms improved (Vincenzo Keen) Reevaluation #3: 02/18/24 17:22 Patient informed of results questions answered (Vincenzo Keen) Reevaluation #4: 02/18/24 17:22 Was pt. sent in by a medical professional or institution ([place], WRIST LINER, urgent care, hospital, or detention...) When possible be specific @ -no Did you speak to anyone other than the patient for history (EMS, parent, family, police, friend...)? What history was obtained from this source @ -no Did you review nursing and triage notes (agree or disagree)? Why? @ -agree Are old charts reviewed (outside hosp., previous admission, EMS record, old EKG, old radiological studies, urgent care reports/EKG's, detention records)? Report findings @ -yes Differential Diagnosis (chest pain, altered mental status, abdominal pain women, abdominal pain men, vaginal bleeding, weakness, fever, dyspnea, syncope, headache, dizziness, GI bleed, back pain, seizure, CVA, palpatations, mental health, musculoskeletal)? @ -prior EKG interpreted by me (3pts min.). @ -no X-rays interpreted by me (1pt min.). @ -no CT interpreted by me (1pt min.). @ -yes negative for acute disease U/S interpreted by me (1pt. min.). @ -no What testing was considered but not performed or refused? (CT, X-rays, U/S, labs)? Why? @ -none What meds were considered but not given or refused? Why? @ -none Did you discuss the management of the patient with other professionals (professionals i.e. Dr., PA, WRIST LINER, lab, RT, psych nurse, social media community manager, title closer, teacher, chief business officer, senior case manager)? Give summary @ -no Was smoking cessation discussed for >3mins.? @ -no Was critical care preformed (if so, how long)? @ -no Were there social determinants of health that impacted care today? How? (Homelessness, low income, unemployed, alcoholism, drug addiction, transportation, low edu. Level, literacy, decrease access to med. care, halfway, rehab)? @ -none Was there de-escalation of care discussed even if they declined (Discuss DNR or withdrawal of care, Hospice)? DNR status @ -no What co-morbidities impacted this encounter? (DM, HTN, Smoking, COPD, CAD, Cancer, CVA, ARF, Chemo, Hep., AIDS, mental health diagnosis, sleep apnea, morbid obesity)? @ -none Was patient admitted / discharged? Hospital course, mention meds given and route, prescriptions, significant lab abnormalities, going to OR and other pertinent info. @ - 28 female with a fall with head injury. Patient has no acute findings here in the ER and can be discharged home Discharge Undiagnosed new problem with uncertain prognosis? @ -no Drug Therapy requiring intensive monitoring for toxicity (Heparin, Nitro, Insulin, Cardizem)? @ -no Were any procedures done? @ -no Diagnosis/symptom? @ -Head injury Acute, or Chronic, or Acute on Chronic? @ -Acute Uncomplicated (without systemic symptoms) or Complicated (systemic symptoms)? @ -Complicated Side effects of treatment? @ -no Exacerbation, Progression, or Severe Exacerbation? @ -exacerbation Poses a threat to life or bodily function? How? (Chest pain, USA, [place], pneumonia, PE, COPD, DKA, ARF, appy, cholecystitis, CVA, Diverticulitis, Homicidal, Suicidal, threat to staff... and all critical care pts) @ -no (Vincenzo Keen) Medical Decision Making <Evangelina Jaramillo - Last Filed: 02/18/24 15:16> - Radiology Data Radiology results: report reviewed (CT brain is negative for acute disease), image reviewed <Vincenzo Keen - Last Filed: 02/22/24 21:31> - Medical Decision Making I performed the quick note portion of this chart. Electronically signed by Evangelina Jaramillo PA-C (Evangelina Jaramillo) 28 female with a fall with head injury. Patient has no acute findings here in the ER and can be discharged home (Vincenzo Keen) Disposition <Evangelina Jaramillo - Last Filed: 02/18/24 15:16> Is patient prescribed a controlled substance at d/c from ED?: No Time of Disposition: 17:00 <Vincenzo Keen - Last Filed: 02/22/24 21:31> Clinical Impression: Fall, Head injury Disposition: HOME SELF-CARE Condition: Good Instructions (If sedation given, give patient instructions): Head Injury (ED) Referrals: Kareem Quintanilla MD [Primary Care Provider] - 1-2 days
--- NOTE | 2024-02-18 15:46 | CT ---
EXAMINATION TYPE: CT brain wo con DATE OF EXAM: 02/18/2024 COMPARISON: 10/14/2023 INDICATION: Fall with head injury no loc or thinners. DLP: 1051.2 mGycm, Automated exposure control for dose reduction was used. CONTRAST: None CT of the brain is performed utilizing 3 mm thick sections through the posterior fossa and 3 mm thick sections through the remaining calvarium. Study is performed within 24 hours of arrival to the hosp [place]. No abnormal hyperdensity is present to suggest an acute intracranial hemorrhage. No mass lesion is evident. No acute infarcts are evident. Ventricles and sulci are appropriate for the patient age. Paranasal sinuses and mastoid air cells within the [id number] are clear. IMPRESSION: 1. No acute intracranial process. Follow up MRI can be performed as clinically indicated. [facility], Workstation: [id number], 02/18/2024 3:44 PM
[2024-02-18] MEDS: IBUPROFEN 800 MG TAB PO STA (17:48)
[2024-02-18] MEDS: IBUPROFEN 600 MG STARTER PACK 4 TAB BTL PO STA (17:48)
[2024-02-18] MEDS: diphenhydrAMINE 50 MG CAP PO STA (17:48)
[2024-02-18] MEDS: ONDANSETRON 4 MG ODT STARTER PACK 2 TAB BTL PO STA (17:48)
[2024-02-18] MEDS: PROCHLORPERAZINE 10 MG TAB PO STA (17:49)
[2024-02-18 17:57] VITALS: BP 111/76; PULSE 82; RESP 18
== END 2024-02-18 18:01 | disposition home or self-care (01) ==
LOC: EC 14:15
CPT/HCPCS: 70450; 99284

== ENCOUNTER 2024-02-19 14:47 | Emergency (ER) | payer MEDICARE ==
[2024-02-19 14:56] VITALS: RESP 16; TEMP 98.6
--- NOTE | 2024-02-19 15:22 | ED ---
General Adult HPI - General Chief complaint: Fall Stated complaint: fall,headache Time Seen by Provider: 02/19/24 15:13 Source: patient, EMS Mode of arrival: EMS Limitations: no limitations - History of Present Illness Initial comments: Patient returns to the ED with her friend for reevaluation. Patient states that she slipped and fell in her kitchen about 4 days ago, striking the back of her head on the floor. Patient states that she has had a posterior headache, blurry vision and difficulty ambulating since hitting her head 4 days ago. Patient was seen in the ED yesterday for these symptoms, and she had a noncontrast head CT obtained, which showed no acute intracranial abnormality. Patient states that her symptoms persist, so she has returned to the ED. Patient denies any new fall or injury, worsening headache or worsening symptoms today. Patient denies fever or chills, focal numbness/weakness/neuro deficit, neck/back/extremity pain, chest pain, dyspnea, cough or cold symptoms, palpitations, abdominal pain, nausea/vomiting/diarrhea, bloody or melanotic stool, dysuria or urinary symptoms, decreased urine output, or any other symptoms or complaints. - Related Data Home Medications Medication Instructions Recorded Confirmed ALPRAZolam [Xanax] 0.5 mg PO TID PRN 10/14/23 10/14/23 Brexpiprazole [Rexulti] 2 mg PO DAILY 10/14/23 10/14/23 Desvenlafaxine [Pristiq ER] 100 mg PO DAILY 10/14/23 10/14/23 traZODone HCL 100 mg PO HS 10/14/23 10/14/23 Allergies Allergy/AdvReac Type Severity Reaction Status Date / Time No Known Allergies Allergy Verified 02/19/24 14:53 Review of Systems ROS Statement: Those systems with pertinent positive or pertinent negative responses have been documented in the HPI. ROS Other: All systems not noted in ROS Statement are negative. Past Medical History Past Medical History: No Reported History History of Any Multi-Drug Resistant Organisms: None Reported Past Surgical History: No Surgical Hx Reported Past Psychological History: No Psychological Hx Reported, Anxiety, Depression Smoking Status: Vaper Past Alcohol Use History: None Reported Past Drug Use History: None Reported General Exam Limitations: no limitations General appearance: alert, in no apparent distress Head exam: Present: atraumatic, normocephalic Eye exam: Present: normal appearance, PERRL, EOMI ENT exam: Present: mucous membranes moist Neck exam: Present: full ROM, other (Trachea is in midline). Absent: tenderness Respiratory exam: Present: normal lung sounds bilaterally. Absent: respiratory distress, wheezes, rales, rhonchi, stridor Cardiovascular Exam: Present: regular rate, normal rhythm, normal heart sounds, other (Normal radial pulses bilaterally) GI/Abdominal exam: Present: soft. Absent: distended, tenderness, guarding Extremities exam: Present: full ROM. Absent: tenderness, pedal edema Back exam: Present: normal inspection. Absent: tenderness Neurological exam: Present: alert, oriented X3, CN II-XII intact, other (5/5 strength in all 4 extremities). Absent: motor sensory deficit Skin exam: Present: warm, dry, intact, normal color Course Vital Signs 02/19/24 02/19/24 02/19/24 14:53 15:04 16:00 Temperature 98.6 F Pulse Rate 86 68 68 Respiratory 16 16 16 Rate Blood Pressure 101/67 130/68 130/60 O2 Sat by Pulse 100 98 98 Oximetry 02/19/24 18:00 Temperature Pulse Rate 63 Respiratory 16 Rate Blood Pressure 118/71 O2 Sat by Pulse 98 Oximetry - Reevaluation(s) Reevaluation #1: 02/19/24 19:16 Patient denies development of any new symptoms while in the ED. Patient continues to have a normal/nonfocal neurological exam. Patient remains alert and breathing comfortably. Patient and friend are aware the patient's test results, and patient feels comfortable being discharged home at this time. She was counseled about head injuries and concussions, and she was clearly explained return and follow-up instructions. She was instructed to follow-up closely with her primary care provider. She feels comfortable with this plan. EKG Findings - EKG Comments: EKG Findings:: ED physician interpretation (interpreted by me): Normal sinus rhythm, no ectopy, ventricular rate of 65 bpm, normal AL and QRS intervals, normal QT interval, normal axis, no ST or T wave abnormality Medical Decision Making - Medical Decision Making Was pt. sent in by a medical professional or institution (, PA, LEHR STRIPPER, urgent care, hospital, or [facility]...) When possible be specific @ -No Did you speak to anyone other than the patient for history (EMS, parent, family, police, friend...)? What history was obtained from this source @ -No Did you review nursing and triage notes (agree or disagree)? Why? @ -I reviewed and agree with nursing and triage notes Were old charts reviewed (outside hosp., previous admission, EMS record, old EKG, old radiological studies, urgent care reports/EKG's, [facility] records)? Report findings @ -No old charts were reviewed Differential Diagnosis (chest pain, altered mental status, abdominal pain women, abdominal pain men, vaginal bleeding, weakness, fever, dyspnea, syncope, headache, dizziness, GI bleed, back pain, seizure, CVA, palpatations, mental health, musculoskeletal)? @ -Fall, head injury, concussion, electrolyte abnormality, hypoglycemia, hyperglycemia, dehydration, renal disease, , medication reaction, this is not a complete list. EKG interpreted by me (3pts min.). @ -As above X-rays interpreted by me (1pt min.). @ -None done CT interpreted by me (1pt min.). @ -None done U/S interpreted by me (1pt. min.). @ -None done What testing was considered but not performed or refused? (CT, X-rays, U/S, labs)? Why? @ -Noncontrast head CT was considered, but given that the patient just had a normal noncontrast head CT obtained yesterday (for same symptoms) and she denies having a worsening headache or new injury, I do not feel that a repeat head CT is indicated at this time. What meds were considered but not given or refused? Why? @ -None Did you discuss the management of the patient with other professionals (professionals i.e. , PA, LEHR STRIPPER, lab, RT, psych nurse, social worker delinquency prevention, drug safety physician, teacher, preventive medicine officer, case briefer)? Give summary @ -No Was smoking cessation discussed for >3mins.? @ -No Was critical care preformed (if so, how long)? @ -No Were there social determinants of health that impacted care today? How? (Homelessness, low income, unemployed, alcoholism, drug addiction, transportatio n, low edu. Level, literacy, decrease access to med. care, prison, rehab)? @ -No Was there de-escalation of care discussed even if they declined (Discuss DNR or withdrawal of care, Hospice)? DNR status @ -No What co-morbidities impacted this encounter? (DM, HTN, Smoking, COPD, CAD, Cancer, CVA, ARF, Chemo, Hep., AIDS, mental health diagnosis, sleep apnea, morbid obesity)? @ -None Was patient admitted / discharged? Hospital course, mention meds given and route, prescriptions, significant lab abnormalities, going to OR and other pertinent info. @ -Patient's EKG and labs are fairly unremarkable. Patient has a normal/nonfocal neurological exam in the ED. Patient's vitals are stable/within normal limits. I do not suspect an emergent medical condition at this time. I suspect that the patient's symptoms may be due to her recent head injury and possible concussion. Patient and friend are aware of the patient's test results. Will discharge patient home with her friend at this time. Patient was counseled about head injuries/concussions. Strict return and follow-up instructions were provided. Undiagnosed new problem with uncertain prognosis? @ -No Drug Therapy requiring intensive monitoring for toxicity (Heparin, Nitro, Insulin, Cardizem)? @ -No Were any procedures done? @ -No Diagnosis/symptom? @ -Mechanical fall with head injury/suspected concussion Acute, or Chronic, or Acute on Chronic? @ -Acute Uncomplicated (without systemic symptoms) or Complicated (systemic symptoms)? @ -Default Side effects of treatment? @ -No Exacerbation, Progression, or Severe Exacerbation? @ -No Poses a threat to life or bodily function? How? (Chest pain, [place], [place], pneumonia, PE, COPD, DKA, ARF, appy, cholecystitis, CVA, Diverticulitis, Homicidal, Suicidal, threat to staff... and all critical care pts) @ -No - Lab Data Result diagrams: 02/19/24 15:57 02/19/24 15:57 Lab Results 02/19/24 02/19/24 02/19/24 Range/Units 14:47 15:57 15:57 WBC 7.0 (3.8-10.6) k/uL RBC 4.20 (3.80-5.40) m/uL Hgb 13.3 (11.4-16.0) gm/dL Hct 40.8 (34.0-46.0) % MCV 97.0 (80.0-100.0) fL MCH 31.7 (25.0-35.0) pg MCHC 32.7 (31.0-37.0) g/dL RDW 12.8 (11.5-15.5) % Plt Count 312 (150-450) k/uL MPV 7.5 Neutrophils % 78 % Lymphocytes % 18 % Monocytes % 2 % Eosinophils % 1 % Basophils % 0 % Neutrophils # 5.4 (1.3-7.7) k/uL Lymphocytes # 1.3 (1.0-4.8) k/uL Monocytes # 0.2 (0-1.0) k/uL Eosinophils # 0.1 (0-0.7) k/uL Basophils # 0.0 (0-0.2) k/uL Sodium 140 (137-145) mmol/L Potassium 4.2 (3.5-5.1) mmol/L Chloride 105 (98-107) mmol/L Carbon Dioxide 25 (22-30) mmol/L Anion Gap 10 mmol/L BUN 14 (7-17) mg/dL Creatinine 0.66 (0.52-1.04) mg/dL Est GFR (CKD-EPI)AfAm >90 (>60 ml/min/1.73 sqM) Est GFR (CKD-EPI)NonAf >90 (>60 ml/min/1.73 sqM) Glucose 98 (74-99) mg/dL Calcium 9.6 (8.4-10.2) mg/dL Magnesium 1.8 (1.6-2.3) mg/dL Total Bilirubin 0.7 (0.2-1.3) mg/dL AST 17 (14-36) U/L ALT 16 (4-34) U/L Alkaline Phosphatase 56 (38-126) U/L Total Protein 7.7 (6.3-8.2) g/dL Albumin 4.5 (3.5-5.0) g/dL TSH 0.154 L (0.465-4.680) mIU/L Free T4 0.98 (0.78-2.19) ng/dL HCG, Qual Not Detected Urine Color Urine Appearance (Clear) Urine pH (5.0-8.0) Ur Specific Northrop (1.001-1.035) Urine Protein (Negative) Urine Glucose (UA) (Negative) Urine Ketones (Negative) Urine Blood (Negative) Urine Nitrite (Negative) Urine Bilirubin (Negative) Urine Urobilinogen (<2.0) mg/dL Ur Leukocyte Esterase (Negative) 02/19/24 Range/Units 16:10 WBC (3.8-10.6) k/uL RBC (3.80-5.40) m/uL Hgb (11.4-16.0) gm/dL Hct (34.0-46.0) % MCV (80.0-100.0) fL MCH (25.0-35.0) pg MCHC (31.0-37.0) g/dL RDW (11.5-15.5) % Plt Count (150-450) k/uL MPV Neutrophils % % Lymphocytes % % Monocytes % % Eosinophils % % Basophils % % Neutrophils # (1.3-7.7) k/uL Lymphocytes # (1.0-4.8) k/uL Monocytes # (0-1.0) k/uL Eosinophils # (0-0.7) k/uL Basophils # (0-0.2) k/uL Sodium (137-145) mmol/L Potassium (3.5-5.1) mmol/L Chloride (98-107) mmol/L Carbon Dioxide (22-30) mmol/L Anion Gap mmol/L BUN (7-17) mg/dL Creatinine (0.52-1.04) mg/dL Est GFR (CKD-EPI)AfAm (>60 ml/min/1.73 sqM) Est GFR (CKD-EPI)NonAf (>60 ml/min/1.73 sqM) Glucose (74-99) mg/dL Calcium (8.4-10.2) mg/dL Magnesium (1.6-2.3) mg/dL Total Bilirubin (0.2-1.3) mg/dL AST (14-36) U/L ALT (4-34) U/L Alkaline Phosphatase (38-126) U/L Total Protein (6.3-8.2) g/dL Albumin (3.5-5.0) g/dL TSH (0.465-4.680) mIU/L Free T4 (0.78-2.19) ng/dL HCG, Qual Urine Color Yellow Urine Appearance Clear (Clear) Urine pH 6.0 (5.0-8.0) Ur Specific [place] 1.025 (1.001-1.035) Urine Protein Negative (Negative) Urine Glucose (UA) Negative (Negative) Urine Ketones Negative (Negative) Urine Blood Negative (Negative) Urine Nitrite Negative (Negative) Urine Bilirubin Negative (Negative) Urine Urobilinogen <2.0 (<2.0) mg/dL Ur Leukocyte Esterase Negative (Negative) Disposition Clinical Impression: Fall, Head injury Narrative: Suspected concussion Disposition: HOME SELF-CARE Condition: Stable Instructions (If sedation given, give patient instructions): Concussion (ED), Fall Prevention (ED) Additional Instructions: Return to the ER immediately should you develop new or worsening pain, numbness or weakness, a fever, persistent vomiting, feeling faint or fainting, or new or worsening symptoms. Follow-up closely with your primary care provider. Is patient prescribed a controlled substance at d/c from ED?: No Referrals: Kareem Quintanilla MD [Primary Care Provider] - 1-2 days Time of Disposition: 19:20
[2024-02-19 16:04] LABS: Basophils % (A) 0 %; Eosinophils # (A) 0.1 k/uL (0-0.7); Eosinophils % (A) 1 %; HCT 40.8 % (34.0-46.0); HGB 13.3 gm/dL (11.4-16.0); Lymphocytes # (A) 1.3 k/uL (1.0-4.8); Lymphocytes % (A) 18 %; MCH 31.7 pg (25.0-35.0); MCHC 32.7 g/dL (31.0-37.0); Mean Platelet Volume 7.5; Monocytes # (A) 0.2 k/uL (0-1.0); Monocytes % (A) 2 %; Neutrophils # (A) 5.4 k/uL (1.3-7.7); Neutrophils % (A) 78 %; Platelet Count 312 k/uL (150-450); RDW 12.8 % (11.5-15.5)
[2024-02-19 16:15] LABS: ALT 16 U/L (4-34); AST 17 U/L (14-36); African American GFR (CKD) >90 (>60 ml/min/1.73 sqM); Albumin 4.5 g/dL (3.5-5.0); Alkaline Phosphatase 56 U/L (38-126); Anion Gap 10 mmol/L; Blood Urea Nitrogen 14 mg/dL (7-17); Calcium 9.6 mg/dL (8.4-10.2); Carbon Dioxide 25 mmol/L (22-30); Chloride 105 mmol/L (98-107); Glucose 98 mg/dL (74-99); Magnesium 1.8 mg/dL (1.6-2.3); Non-African American GFR(CKD) >90 (>60 ml/min/1.73 sqM); Potassium 4.2 mmol/L (3.5-5.1); Sodium 140 mmol/L (137-145); Total Bilirubin 0.7 mg/dL (0.2-1.3); Total Protein 7.7 g/dL (6.3-8.2)
[2024-02-19 16:20] LABS: HCG,Qualitative Serum Not Detected
[2024-02-19 16:21] LABS: Appearance,Urine Clear (Clear); Bilirubin,Urine Negative (Negative); Blood,Urine Negative (Negative); Color,Urine Yellow; Glucose,Urine (UA) Negative (Negative); Ketones,Urine Negative (Negative); Leukocyte Esterase,Urine Negative (Negative); Nitrite,Urine Negative (Negative); Protein,Urine Negative (Negative); Specific Gravity,Urine 1.025 (1.001-1.035); Urobilinogen,Urine <2.0 mg/dL (<2.0)
[2024-02-19 18:10] LABS: T4, Free (Free Thyroxine) 0.98 ng/dL (0.78-2.19)
[2024-02-19 18:24] VITALS: BP 118/71; PULSE 63
== END 2024-02-19 19:30 | disposition home or self-care (01) ==
LOC: EC 14:47
CPT/HCPCS: 36415; 80053; 81003; 83735; 84439; 84443; 84481; 84703; 85025; 93005; 99284

== ENCOUNTER 2024-08-21 16:13 | Inpatient (IN) | payer MEDICAID, MEDICARE, OTHER ==
[2024-08-21 18:25] LABS: Basophils # (A) 0.01 10*3/uL (0.00-0.10); Basophils % (A) 0.1 %; Eosinophils % (A) 1.8 %; HCT 37.7 % (37.2-46.3); Lymphocytes # (A) 1.66 10*3/uL (0.90-5.00); Lymphocytes % (A) 15.2 %; MCH 32.4 pg (27.0-32.0); MCHC 34.5 g/dL (32.0-37.0); Mean Platelet Volume 10.3 fL (9.5-12.2); Monocytes # (A) 0.42 10*3/uL (0.20-1.00); Monocytes % (A) 3.9 %; Neutrophils # (A) 8.58 10*3/uL (1.80-7.70); Neutrophils % (A) 78.8 %; Platelet Count 301 10*3/uL (140-440); RBC 4.01 10*6/uL (4.10-5.20); RDW 12.6 % (11.5-14.5); WBC 10.89 10*3/uL (4.50-10.00)
[2024-08-21] MEDS: SODIUM CHLORIDE 0.9% 1,000 ML IV STA (18:30)
[2024-08-21] MEDS: LORazepam 0.5 MG TAB PO STA (18:30)
[2024-08-21 18:51] LABS: ALT 24 U/L (4-34); AST 26 U/L (14-36); Acetaminophen <10.0 ug/mL; African American GFR (CKD) >90 (>60 ml/min/1.73 sqM); Albumin 4.3 g/dL (3.5-5.0); Alcohol <10 mg/dL; Alkaline Phosphatase 60 U/L (38-126); Anion Gap 9 mmol/L; Blood Urea Nitrogen 7 mg/dL (7-17); Calcium 9.4 mg/dL (8.4-10.2); Carbon Dioxide 23 mmol/L (22-30); Chloride 106 mmol/L (98-107); Glucose 95 mg/dL (74-99); Non-African American GFR(CKD) >90 (>60 ml/min/1.73 sqM); Salicylate <1.0 mg/dL; Sodium 138 mmol/L (137-145); Total Bilirubin 0.3 mg/dL (0.2-1.3); Total Protein 7.3 g/dL (6.3-8.2)
--- NOTE | 2024-08-21 20:25 | ED ---
General Adult HPI - General Chief complaint: Psychiatric Symptoms Stated complaint: Mental Health Eval. Time Seen by Provider: 08/21/24 18:00 Source: patient, RN notes reviewed, old records reviewed Mode of arrival: ambulatory Limitations: no limitations - History of Present Illness Initial comments: Patient is a 29-year-old female who presents emergency department for suicide attempt. Patient states that 2 days ago she attempted to overdose on a mixture of a handful of Xanax, Adderall, and oxycodone. Unknown exactly how many tablets of each she took. She also used cocaine and alcohol. Unknown exactly how much she took. She states she has been feeling more depressed because a friend recently . She states she was very sleepy yesterday and slept throughout the day however feels better today. Denies any headaches, chest pain, shortness of breath, abdominal pain, nausea, vomiting. She brought herself here today due to the suicide attempt and wants to be evaluated. Does have a history of suicide attempt 5 years ago. Denies any homicidal ideations, intents, plans. Denies any hallucinations. Presents for further evaluation at this time. Ingestion occurred greater than 36 hours ago. - Related Data Home Medications Medication Instructions Recorded Confirmed ALPRAZolam [Xanax] 0.5 mg PO TID PRN 10/14/23 10/14/23 Brexpiprazole [Rexulti] 2 mg PO DAILY 10/14/23 10/14/23 Desvenlafaxine [Pristiq ER] 100 mg PO DAILY 10/14/23 10/14/23 traZODone HCL 100 mg PO HS 10/14/23 10/14/23 Allergies Allergy/AdvReac Type Severity Reaction Status Date / Time No Known Allergies Allergy Verified 08/21/24 16:26 Review of Systems ROS Statement: Those systems with pertinent positive or pertinent negative responses have been documented in the HPI. Review of Systems: CONST: Denies fever EYES: Denies blurry vision ENT: Denies nasal congestion C/V: Denies Chest pain RESP: Denies shortness of breath GI: Denies abdominal pain : Denies dysuria SKIN: Denies rash. MSK: Denies joint pain. NEURO: Denies headache ROS Other: All systems not noted in ROS Statement are negative. Past Medical History Past Medical History: No Reported History History of Any Multi-Drug Resistant Organisms: None Reported Past Surgical History: No Surgical Hx Reported Past Psychological History: No Psychological Hx Reported, Anxiety, Depression Smoking Status: Vaper Past Alcohol Use History: None Reported Past Drug Use History: None Reported, Cocaine General Exam - General Exam Comments Initial Comments: General: Appears anxious HEAD: Normal with no signs of head trauma. EYES: PERRLA, EOMI, conjunctiva normal, no discharge. Pupils are 3 mm and equal bilaterally. ENT: Hearing grossly intact, normal oropharynx. RESPIRATORY: Clear breath sounds bilaterally. No wheezes, rales, or rhonchi. C/V: Regular rate and rhythm. S1 and S2 auscultated, no edema, peripheral pulses 2+ and intact throughout ABD: Abd is soft, nontender, nondistended EXT: Normal range of motion, no obvious deformity SKIN: No rashes or lesions observed on exposed skin. NEURO: Alert and oriented x 4. Cranial nerves II-XII intact. No focal sensory or strength deficits. Limitations: no limitations Course Vital Signs 08/21/24 08/21/24 16:22 20:00 Temperature 98.3 F Pulse Rate 75 74 Respiratory 16 18 Rate Blood Pressure 128/78 114/72 O2 Sat by Pulse 98 100 Oximetry Medical Decision Making - Medical Decision Making Was pt. sent in by a medical professional or institution (, PA, FUEL HOUSE ATTENDANT, urgent care, hospital, or [facility]...) When possible be specific @ -No Did you speak to anyone other than the patient for history (EMS, parent, family, police, friend...)? What history was obtained from this source @ -No Did you review nursing and triage notes (agree or disagree)? Why? @ -I reviewed and agree with nursing and triage notes Were old charts reviewed (outside hosp., previous admission, EMS record, old EKG, old radiological studies, urgent care reports/EKG's, [facility] records)? Report findings @ -No old charts were reviewed Differential Diagnosis (chest pain, altered mental status, abdominal pain women, abdominal pain men, vaginal bleeding, weakness, fever, dyspnea, syncope, headache, dizziness, GI bleed, back pain, seizure, CVA, palpatations, mental health, musculoskeletal)? @ -Differential Mental Health Depression, anxiety, bipolar, psychosis, schizophrenia, borderline personality, situational depression, adjustment disorder, behavioral disorder, brain tumor, malingering, substance abuse, encephalopathy, medication reaction, dementia, hypothyroidism, degenerative neurologic disorder, lupus.... This is not meant to be all-inclusive list. Also includes overdose, suicide attempt. EKG interpreted by me (3pts min.). @ -As above X-rays interpreted by me (1pt min.). @ -None done CT interpreted by me (1pt min.). @ -None done U/S interpreted by me (1pt. min.). @ -None done What testing was considered but not performed or refused? (CT, X-rays, U/S, labs)? Why? @ -None What meds were considered but not given or refused? Why? @ -None Did you discuss the management of the patient with other professionals (pro fessionals i.e. , PA, FUEL HOUSE ATTENDANT, lab, RT, psych nurse, social media assistant, mine captain, teacher, retail loss prevention officer, special education case manager)? Give summary @ -Yes notified of the consult. Poison control spoken with. They stated that we could observe the patient for 6 to 8 hours here in the department. At the time of the call, we had already observed the patient for 3 hours. By the time the patient is evaluated by EPS, will be 6 hours. Ingestion was 2 days ago and I have low suspicion for any acute pathology occurring. Patient will be medically cleared for evaluation. Was smoking cessation discussed for >3mins.? @ -No Was critical care preformed (if so, how long)? @ -No Were there social determinants of health that impacted care today? How? (Homelessness, low income, unemployed, alcoholism, drug addiction, tra nsportation, low edu. Level, literacy, decrease access to med. care, [facility], rehab)? @ -No Was there de-escalation of care discussed even if they declined (Discuss DNR or withdrawal of care, Hospice)? DNR status @ -No What co-morbidities impacted this encounter? (DM, HTN, Smoking, COPD, CAD, Cancer, CVA, ARF, Chemo, Hep., AIDS, mental health diagnosis, sleep apnea, morbid obesity)? @ -None Was patient admitted / discharged? Hospital course, mention meds given and route, prescriptions, significant lab abnormalities, going to OR and other pertinent info. @ -Patient presents for mental evaluation after suicide attempt via overdose. Use multiple substances to attempt to overdose 2 days ago. A handful of pills that consisted of oxycodone, Xanax, and Adderall as well as cocaine and alcohol. Currently has no complaints. States she slept all day yesterday. We will obtain overdose workup, and Poison control will be consulted. Precautions ordered. Sitter ordered. Given IV fluids for supportive care as well as a small dose of Ativan for anxiety. She was in agreement this plan. Vital signs are within acceptable limits. No acute complaints at this time other than anxiety. EKG showed no signs of acute ischemia. Laboratory studies returned unremarkable. This includes alcohol, Tylenol, salicylates all negative. COVID is negative. Urine study still pending. At this time after discussion with poison control who stated we could observe the patient for 6-8 hours, however patient had the ingestion over 2 nights ago and has no acute complaints at this time. We have already cleared the patient for 4 hours and by the time EPS evaluates the patient, will be 6 hours. She has no symptoms. EPS notified of the consult. Patient is medically cleared for evaluation by psychiatry at this time. EPS evaluated the patient and determined that she does meet inpatient criteria for admission. Patient has been observed for a period of 5 and half hours at this point. No new symptoms. Patient remains medically cleared. Patient will be admitted to inpatient psychiatry. Undiagnosed new problem with uncertain prognosis? @ -No Drug Therapy requiring intensive monitoring for toxicity (Heparin, Nitro, Insulin, Cardizem)? @ -No Were any procedures done? @ -No Diagnosis/symptom? @ -Suicide attempt Acute, or Chronic, or Acute on Chronic? @ -Acute Uncomplicated (without systemic symptoms) or Complicated (systemic symptoms)? @ -Complicated Side effects of treatment? @ -No Exacerbation, Progression, or Severe Exacerbation? @ -No Poses a threat to life or bodily function? How? (Chest pain, [place], [place], pneumonia, PE, COPD, DKA, ARF, appy, cholecystitis, CVA, Diverticulitis, Homicidal, Suicidal, threat to staff... and all critical care pts) @ -Yes - Lab Data Result diagrams: 08/21/24 18:20 08/21/24 18:20 Lab Results 08/21/24 08/21/24 08/21/24 Range/Units 18:20 18:20 18:20 WBC 10.89 H (4.50-10.00) 10*3/uL RBC 4.01 L (4.10-5.20) 10*6/uL Hgb 13.0 (12.0-15.0) g/dL Hct 37.7 (37.2-46.3) % MCV 94.0 (80.0-97.0) fL MCH 32.4 H (27.0-32.0) pg MCHC 34.5 (32.0-37.0) g/dL Plt Count 301 (140-440) 10*3/uL MPV 10.3 (9.5-12.2) fL Immature Gran % (Auto) 0.2 % Neutrophils % 78.8 % Lymphocytes % 15.2 % Monocytes % 3.9 % Eosinophils % 1.8 % Basophils % 0.1 % Immature Gran # 0.02 (0.00-0.04) 10*3/uL Neutrophils # 8.58 H (1.80-7.70) 10*3/uL Lymphocytes # 1.66 (0.90-5.00) 10*3/uL Monocytes # 0.42 (0.20-1.00) 10*3/uL Eosinophils # 0.20 (0.04-0.35) 10*3/uL Basophils # 0.01 (0.00-0.10) 10*3/uL Sodium 138 (137-145) mmol/L Potassium 4.0 (3.5-5.1) mmol/L Chloride 106 (98-107) mmol/L Carbon Dioxide 23 (22-30) mmol/L Anion Gap 9 mmol/L BUN 7 (7-17) mg/dL Creatinine 0.51 L (0.52-1.04) mg/dL Est GFR (CKD-EPI)AfAm >90 (>60 ml/min/1.73 sqM) Est GFR (CKD-EPI)NonAf >90 (>60 ml/min/1.73 sqM) Glucose 95 (74-99) mg/dL Calcium 9.4 (8.4-10.2) mg/dL Total Bilirubin 0.3 (0.2-1.3) mg/dL AST 26 (14-36) U/L ALT 24 (4-34) U/L Alkaline Phosphatase 60 (38-126) U/L Total Protein 7.3 (6.3-8.2) g/dL Albumin 4.3 (3.5-5.0) g/dL Salicylates <1.0 mg/dL Acetaminophen <10.0 ug/mL Serum Alcohol <10 mg/dL SARS-CoV-2 (PCR) Not Detected (Not Detectd) - EKG Data -: EKG Interpreted by Me EKG Comments: 12-lead Electrocardiogram Interpretation Note EKG was reviewed and interpreted by myself. 12-lead ECG performed at 1931 is interpreted by me as revealing normal sinus rhythm at a rate of 61 beats per minute. Concrete is normal. RI interval is 124 ms, QRS duration is 86 ms, QTc is 425 ms. There were no ST or T wave abnormalities to suggest myocardial ischemia or injury. R wave progression across the precordium was satisfactory. By my interpretation this EKG is non-diagnostic for acute ischemia. Disposition Clinical Impression: Suicide attempt, Suicidal behavior Disposition: TRANSFER TO PSYCH HOSP/UNIT Condition: Stable Referrals: Kareem Quintanilla MD [Primary Care Provider] - 1-2 days Time of Disposition: 21:33
[2024-08-22] MEDS ORDERED: MAGNESIUM HYDROXIDE 2,400 MG/30 ML CUP PO PRN (01:27)
[2024-08-22] MEDS ORDERED: haloperidoL 5 MG TAB PO PRN (01:27)
[2024-08-22] MEDS ORDERED: HALOPERIDOL LACTATE 5 MG/ML 1 ML VIAL IM PRN (01:27)
[2024-08-22] MEDS ORDERED: MAG HYDROX/AL HYDROX/SIMETH 355 ML BOTTLE PO PRN (01:27)
[2024-08-22] MEDS ORDERED: LORazepam 2 MG/ML INJ IM PRN (01:27)
[2024-08-22] MEDS: LORazepam 1 MG TAB PO PRN (02:54)
[2024-08-22] MEDS ORDERED: OLANZapine 5 MG TAB PO PRN (12:40)
[2024-08-22] MEDS: DULoxetine HCL 30 MG CAPSULE.DR PO SCH (13:21)
--- NOTE | 2024-08-22 13:29 | P.HP ---
Psychiatric H&P - . H&P Date: 08/22/24 History & Physical: Allergies Allergy/AdvReac Type Severity Reaction Status Date / Time No Known Allergies Allergy Verified 08/21/24 16:26 Vital Signs Temp 98.2 F 08/22/24 02:28 Pulse 71 08/22/24 02:28 Resp 17 08/22/24 02:28 BP 112/92 08/22/24 02:28 Pulse Ox 97 08/22/24 02:28 FiO2 Intake & Output 08/21/24 08/22/24 08/22/24 18:59 06:59 18:59 Weight 78.018 kg 81.1 kg Laboratory Last Values WBC 10.89 10*3/uL (4.50-10.00) H 08/21/24 18:20 RBC 4.01 10*6/uL (4.10-5.20) L 08/21/24 18:20 Hgb 13.0 g/dL (12.0-15.0) 08/21/24 18:20 Hct 37.7 % (37.2-46.3) 08/21/24 18:20 MCV 94.0 fL (80.0-97.0) 08/21/24 18:20 MCH 32.4 pg (27.0-32.0) H 08/21/24 18:20 MCHC 34.5 g/dL (32.0-37.0) 08/21/24 18:20 Plt Count 301 10*3/uL (140-440) 08/21/24 18:20 MPV 10.3 fL (9.5-12.2) 08/21/24 18:20 Immature Gran % (Auto) 0.2 % 08/21/24 18:20 Neutrophils % 78.8 % 08/21/24 18:20 Lymphocytes % 15.2 % 08/21/24 18:20 Monocytes % 3.9 % 08/21/24 18:20 Eosinophils % 1.8 % 08/21/24 18:20 Basophils % 0.1 % 08/21/24 18:20 Immature Gran # 0.02 10*3/uL (0.00-0.04) 08/21/24 18:20 Neutrophils # 8.58 10*3/uL (1.80-7.70) H 08/21/24 18:20 Lymphocytes # 1.66 10*3/uL (0.90-5.00) 08/21/24 18:20 Monocytes # 0.42 10*3/uL (0.20-1.00) 08/21/24 18:20 Eosinophils # 0.20 10*3/uL (0.04-0.35) 08/21/24 18:20 Basophils # 0.01 10*3/uL (0.00-0.10) 08/21/24 18:20 Sodium 138 mmol/L (137-145) 08/21/24 18:20 Potassium 4.0 mmol/L (3.5-5.1) 08/21/24 18:20 Chloride 106 mmol/L (98-107) 08/21/24 18:20 Carbon Dioxide 23 mmol/L (22-30) 08/21/24 18:20 Anion Gap 9 mmol/L 08/21/24 18:20 BUN 7 mg/dL (7-17) 08/21/24 18:20 Creatinine 0.51 mg/dL (0.52-1.04) L 08/21/24 18:20 Est GFR (CKD-EPI)AfAm >90 (>60 ml/min/1.73 sqM) 08/21/24 18:20 Est GFR (CKD-EPI)NonAf >90 (>60 ml/min/1.73 sqM) 08/21/24 18:20 Glucose 95 mg/dL (74-99) 08/21/24 18:20 Calcium 9.4 mg/dL (8.4-10.2) 08/21/24 18:20 Total Bilirubin 0.3 mg/dL (0.2-1.3) 08/21/24 18:20 AST 26 U/L (14-36) 08/21/24 18:20 ALT 24 U/L (4-34) 08/21/24 18:20 Alkaline Phosphatase 60 U/L (38-126) 08/21/24 18:20 Total Protein 7.3 g/dL (6.3-8.2) 08/21/24 18:20 Albumin 4.3 g/dL (3.5-5.0) 08/21/24 18:20 Salicylates <1.0 mg/dL 08/21/24 18:20 Acetaminophen <10.0 ug/mL 08/21/24 18:20 Serum Alcohol <10 mg/dL 08/21/24 18:20 SARS-CoV-2 (PCR) Not Detected (Not Detectd) 08/21/24 18:20 08/22/24 12:26 IDENTIFYING DATA: Patient is a 29-year-old female, currently lives with her mot her in a house, she is single she has 1 kid she is unemployed HPI: Patient presented to the hospital yesterday and was evaluated by EPS nurse and according to note "Patient presented to ER related to attempted OD 2 days ago. Patient assessed in ER17 from [id number] with father at bedside per patient request. Patient observed to verbalize that she attempted to OD 2 days ago on multiple medications. Patient verbalizes that her friend 4-5 days ago and she has been having difficulty coping with this. Patient expresses passive suicidal ideation stating that she wishes she was not alive anymore. When asked if patient is still currently feeling suicidal, patient lacked eye contact, fidgeting with hands, and stating "I don't know". then stated "I don't know how I feel anymore". Patient appeared guarded and minimally sharing during assessment. Patient evasive and minimal with information when answering questions. Patient states that she was prescribed Buspar and Seroquel about a week ago by her PCP and has been sporatically compliant with Buspar and has not taken the Seroquel. Patient verbalizes okay appetite and terrible sleep. Patient verbalizes hx of self harm by cutting left arm with last incident 2 years ago. denies homicidal ideations. Denies auditory or visual hallucinations. Denies paranoia, and no delusional statements noted on assessment. Patient denies alcohol use, denies substance use, and verbalizes daily smoking a vape. " patient was seen today in bed and was agreeable to speak to com writer in the office. Patient had poor eye contact she is fairly concrete evasive and guarded. Claims that her friend recently committed suicide about 4 or 5 days ago. States that she has been grieving, feeling more depressed lately. States that she also drank about 2 or 3 drinks of tequila about a couple days ago. Also claims that about 3 nights ago she attempted to overdose on a small amount of oxycodone and her own Adderall. Denying any withdrawal symptoms at this time. Claims that she did not tell anybody, came to the hospital for suicidal thoughts for the past few days. Denies having any plan at this time. She claims that she came to the hospital on her own. Claims that she has been worried about her daughter because of her own thoughts about ending her life. States that she has been having high levels of anxiety, also describing having family issues at home and also dealing with custody with the baby's father. Claims that her sleep and appetite have been on and off. Patient denies any suicidal or homicidal ideations intent or plan. At this time patient denies any auditory or visual hallucinations. Patient denies any flight of ideas racing thoughts and increased in goal directed behavior. Patient admits to using cigarettes daily, denies any other recreational drug use except for the alcohol use/abuse as noted above. PAST PSYCHIATRIC HISTORY: Patient has a history of anxiety, PTSD and depressive disorder. Patient has been on several different medications in the past, currently states that she can remember taking trazodone Pristiq Rexulti and Xanax. Patient's last psychiatric hospitalization was in December 2020. Patient denies any psychiatric outpatient follow-up. Claims that she did have a overdose suicide attempt in 2020. She states that her primary care doctor prescribes her medications. PMH: as per ER note ALLERGIES: as per EMR CHEMICAL DEPENDENCY HISTORY: as per HPI FAMILY PSYCHIATRIC/SUBSTANCE USE HISTORY: Denies SOCIAL HISTORY: Patient was born and raised in [place] and then moved to [place]. Claims that she completed her GED in school. Claims that she works several different jobs in the past currently unemployed. She currently lives with her mother in a house she is single she has 1 kid. States that [facility]-related [facility]. MENTAL STATUS EXAM: General Appearance: Patient appears to be tall, disheveled in appearance, poor eye contact, stated age is alert, vague and evasive. Patient appears to have poor hygiene and grooming. Behavior: Patient is seated without any agitated behavior. Evasive, guarded Speech: Patient's speech is fluent and nonpressured. [place] Mood/Affect: Patient reports their mood is depressed and anxious, affect is congruent and constricted. Suicidality/Homicidality: Patient denies having any homicidal ideation intent or plan. Denies any suicidal ideations intent or plan Perceptions: Patient denies any visual hallucinations and denies any auditory hallucinations Though content/process: There is no evidence of any delusional thought content and thought process is linear and goal-directed. [place], poverty of content. Memory and concentration: AOX3, grossly intact for the purposes of this session. Can spell "WORLD" backwards Judgment and insight: Poor STRENGTHS/WEAKNESSES: strength is that patient is resilient. Weakness is that patient has poor judgment and is impulsive INTELLECT: Average IMPRESSIONS: Mood disorder unspecified, likely bipolar disorder depressed episode versus major depressive disorder Suicidal ideations Alcohol abuse Nicotine dependence PLAN: -Patient is admitted under voluntary status to MHU for stabilization of psychiatric symptoms and safety. Patient has signed adult voluntary form and has not signed medication consent and is placed in patient's chart. -Medications : Seroquel 50 mg nightly for mood stabilization/insomnia, Cymbalta 30 mg daily for mood/anxiety -Ativan and Zyprexa PRN for agitation/aggression -CIWA protocol with Ativan PRN for ETOH withdrawal. -Patient was counselled on substance abuse and desired to cut back on use. Patient states they do not want rehab and wish to cut back subtance use on their own -Patient was informed of the risks, benefits and side effects of the medications and patient verbally consented to taking the medications. Patient signed med consent form and was placed in chart. Patient was offered medication information and accepted it -Internal Medicine consult to perform medical evaluation and physical. -NRT -nicotine patch - on board for discharge planning. Encourage patient to participate in groups to work on coping skills. 08/22/24 12:42 08/22/24 13:24 08/22/24 13:28
[2024-08-22] MEDS: QUEtiapine 50 MG TAB PO SCH (20:41)
--- NOTE | 2024-08-22 21:07 | CONS ---
CONSULTATION CHIEF COMPLAINT: Major depression. HISTORY OF PRESENT ILLNESS: This lady presented to the emergency room expressing the thought to kill herself. Apparently, she recently experienced the of a friend. REVIEW OF SYSTEMS: She has had no headaches, chest pain, abdominal pain, neurologic problems, etc. Past medical history, family history, personal and social histories reveal that she is not allergic to any medications. She has not been on any medications. She recently was in the office seeking Xanax, but this was refused because there was difficulty with the special forces officer who did not want her on this drug any longer. She had not had any hospitalizations. She does smoke. PHYSICAL EXAMINATION: VITAL SIGNS: Normal. HEAD, EARS, EYES, NOSE, MOUTH AND THROAT: Normal. CHEST: Clear. CARDIA: Normal. ABDOMEN: Soft, nontender. EXTREMITIES: Normal. NEUROLOGICAL: She is intact. ASSESSMENT: She is admitted to the hospital with diagnoses of, 1. Major depression. 2. History of suicidal thoughts. 3. History of Xanax abuse. RECOMMENDATIONS: None. Thank you respectfully, STAN / GUY: [id number] /
[2024-08-23 07:49] LABS: Basophils # (A) 0.02 10*3/uL (0.00-0.10); Basophils % (A) 0.2 %; Eosinophils # (A) 0.25 10*3/uL (0.04-0.35); Eosinophils % (A) 2.8 %; HCT 37.9 % (37.2-46.3); HGB 12.8 g/dL (12.0-15.0); Lymphocytes # (A) 3.12 10*3/uL (0.90-5.00); Lymphocytes % (A) 35.2 %; MCH 31.7 pg (27.0-32.0); MCHC 33.8 g/dL (32.0-37.0); MCV 93.8 fL (80.0-97.0); Mean Platelet Volume 9.9 fL (9.5-12.2); Monocytes # (A) 0.33 10*3/uL (0.20-1.00); Monocytes % (A) 3.7 %; Neutrophils # (A) 5.12 10*3/uL (1.80-7.70); Neutrophils % (A) 57.9 %; Platelet Count 340 10*3/uL (140-440); RBC 4.04 10*6/uL (4.10-5.20); RDW 12.6 % (11.5-14.5); WBC 8.86 10*3/uL (4.50-10.00)
[2024-08-23 08:10] LABS: ALT 18 U/L (4-34); AST 18 U/L (14-36); African American GFR (CKD) >90 (>60 ml/min/1.73 sqM); Albumin 3.7 g/dL (3.5-5.0); Alkaline Phosphatase 55 U/L (38-126); Anion Gap 8 mmol/L; Blood Urea Nitrogen 6 mg/dL (7-17); Calcium 9.4 mg/dL (8.4-10.2); Carbon Dioxide 26 mmol/L (22-30); Chloride 106 mmol/L (98-107); Glucose 92 mg/dL (74-99); Non-African American GFR(CKD) >90 (>60 ml/min/1.73 sqM); Potassium 3.7 mmol/L (3.5-5.1); Sodium 140 mmol/L (137-145); Total Bilirubin 0.4 mg/dL (0.2-1.3); Total Protein 6.6 g/dL (6.3-8.2)
--- NOTE | 2024-08-23 11:24 | P.PN ---
Progress Note - Text Progress Note Date: 08/23/24 Interval history: Patient was seen today laying in bed agreeable to speak to engineering writer. Claims that her energy level still low. Claims that her mood is a bit better from yesterday continues to report anxiety. She took an Ativan this morning. She is denying any withdrawal symptoms at this time from alcohol. Claims that she was able to sleep fairly last night, did not report any overnight issues. Continues to state that her appetite is poor. She continues to be fairly concrete during conversation and continues to have disheveled appearance. Denies any suicidal homicidal ideations intent or plan denies any auditory or visual hallucinations today MENTAL STATUS EXAM: General Appearance: Patient appears to be tall, disheveled in appearance, improving eye contact, stated age is alert, vague and evasive. Patient appears to have poor hygiene and grooming. Behavior: Patient is seated without any agitated behavior. Evasive, guarded, improving mildly Speech: Patient's speech is fluent and nonpressured. [place] Mood/Affect: Patient reports their mood is depressed and anxious, improving mildly, affect is congruent and constricted. Suicidality/Homicidality: Patient denies having any homicidal ideation intent or plan. Denies any suicidal ideations intent or plan Perceptions: Patient denies any visual hallucinations and denies any auditory hallucinations Though content/process: There is no evidence of any delusional thought content and thought process is linear and goal-directed. [place], poverty of content. Improving mildly Memory and concentration: AOX3, grossly intact for the purposes of this session Judgment and insight: Poor, improving mildly IMPRESSIONS: Mood disorder unspecified, likely bipolar disorder depressed episode versus major depressive disorder Suicidal ideations Alcohol abuse Nicotine dependence PLAN: -Patient is admitted under voluntary status to MHU for stabilization of psychiatric symptoms and safety. Patient has signed adult voluntary form and has not signed medication consent and is placed in patient's chart. -Medications : Seroquel 50 mg nightly for mood stabilization/insomnia, increase Cymbalta 60 mg daily for mood/anxiety -Ativan and Zyprexa PRN for agitation/aggression -CIWA protocol with Ativan PRN for ETOH withdrawal. -NRT -nicotine patch -SW on board for discharge planning. Encourage patient to participate in groups to work on coping skills. hopeful for discharge early next week if patient is improving psychiatrically.
[2024-08-24] MEDS: DULoxetine HCL 60 MG CAPSULE.DR PO SCH (08:31)
[2024-08-24 11:59] LABS: Amphetamine Screen,Urine Not Detected (NotDetected); Barbiturate Screen,Urine Not Detected (NotDetected); Benzodiazepines Screen,Urine Detected (NotDetected); Cocaine Screen,Urine Detected (NotDetected); Methadone Screen, Urine Not Detected (NotDetected); Opiate Screen,Urine Not Detected (NotDetected); Oxycodone Screen, Urine Not Detected (NotDetected); Phencyclidine Screen,Urine Not Detected (NotDetected); Tricyclic Antidepressant,Urine Detected (NotDetected); Urn Cannabinoid Scrn Not Detected (NotDetected)
[2024-08-24 12:07] LABS: Appearance,Urine Cloudy (Clear); Bilirubin,Urine Negative (Negative); Blood,Urine Negative (Negative); Color,Urine Yellow; Glucose,Urine (UA) Negative (Negative); Ketones,Urine Negative (Negative); Leukocyte Esterase,Urine Negative (Negative); Mucus,Urine Many /hpf; Nitrite,Urine Negative (Negative); PH, Urine 6.5 (5.0-8.0); Protein,Urine Negative (Negative); Specific Gravity,Urine 1.015 (1.001-1.035); Squamous Epithelial Cell,Urine 4 /hpf (0-4); WBC,Urine 2 /hpf (0-5)
--- NOTE | 2024-08-24 12:43 | P.PN ---
Progress Note - Text Progress Note Date: 08/24/24 Interval history: Patient was seen today laying in bed agreeable to speak to card writer hand. Patient co ntinues to mainly isolate on the unit goes to some groups in the afternoon. Claims that her energy level is a bit better today. States that she is still having some anxiety, claims that her mood has improved significantly since yesterday. Was agreeable to have her medications adjusted once again. States that she is sleeping well throughout the night no significant issues. Denying any side effects at this time. Claims that she is eating well. States that she would like to be discharged tomorrow if that is possible as she misses her son. Improving hygiene and grooming. Denies any suicidal homicidal ideations intent or plan denies any auditory or visual hallucinations today MENTAL STATUS EXAM: General Appearance: Patient appears to be tall, disheveled in appearance, improving eye contact, stated age is alert, attempts to cooperate more today. Patient appears to have improving hygiene and grooming. Behavior: Patient is seated without any agitated behavior. More cooperative toyogesh hess. Speech: Patient's speech is fluent and nonpressured. [place], improving mildly Mood/Affect: Patient reports their mood is depressed and anxious, improving mildly, affect is congruent and constricted. Suicidality/Homicidality: Patient denies having any homicidal ideation intent or plan. Denies any suicidal ideations intent or plan Perceptions: Patient denies any visual hallucinations and denies any auditory hallucinations Though content/process: There is no evidence of any delusional thought content and thought process is linear and goal-directed. [place], Improving mildly Memory and concentration: AOX3, grossly intact for the purposes of this session Judgment and insight: improving mildly IMPRESSIONS: Mood disorder unspecified, likely bipolar disorder depressed episode versus major depressive disorder Suicidal ideations Alcohol abuse Nicotine dependence PLAN: -Patient is admitted under voluntary status to MHU for stabilization of psychiatric symptoms and safety. Patient has signed adult voluntary form and has not signed medication consent and is placed in patient's chart. -Medications : Seroquel 50 mg nightly for mood stabilization/insomnia, increase Cymbalta 90 mg daily for mood/anxiety -Ativan and Zyprexa PRN for agitation/aggression -CIWA protocol with Ativan PRN for ETOH withdrawal. -NRT -nicotine patch -SW on board for discharge planning. Encourage patient to participate in groups to work on coping skills. hopeful for discharge tomorrow back home if patient is improving psychiatrically. She is not interested in rehab at this time.
--- NOTE | 2024-08-25 11:43 | P.PN ---
Progress Note - Text Progress Note Date: 08/25/24 Interval history: Patient was seen today wandering the hallways, attending some groups. She festus ears to have improvement in hygiene and grooming today. Claims that her depression has been improving however states that she is still feeling anxious. Claims that she did take her Ativan this morning. We spoke about the possibility of Ativan abuse along with other benzodiazepines, she appears to be somewhat superficial about this. She was willing to try Vistaril twice a day for anxiety over the weekend. Claims that she is sleeping a bit better at nighttime. Claims that she is trying to go to groups now has been eating well. Denies any suicidal homicidal ideations intent or plan denies any auditory or visual hallucinations today MENTAL STATUS EXAM: General Appearance: Patient appears to be tall, disheveled in appearance, improving eye contact, stated age is alert, attempts to cooperate more today. Patient appears to have improving hygiene and grooming. Behavior: Patient is seated without any agitated behavior. More cooperative today. Speech: Patient's speech is fluent and nonpressured. [place], improving mildly Mood/Affect: Patient reports their mood is mainly anxious, affect is congruent and constricted. Improving mildly Suicidality/Homicidality: Patient denies having any homicidal ideation intent or plan. Denies any suicidal ideations intent or plan Perceptions: Patient denies any visual hallucinations and denies any auditory hallucinations Though content/process: There is no evidence of any delusional thought content and thought process is linear and goal-directed. [place], Improving mildly. Focused on discharge. Minimizing. Memory and concentration: AOX3, grossly intact for the purposes of this session Judgment and insight: improving mildly IMPRESSIONS: Mood disorder unspecified, likely bipolar disorder depressed episode versus major depressive disorder Suicidal ideations Alcohol abuse Nicotine dependence PLAN: -Patient is admitted under voluntary status to MHU for stabilization of psychiatric symptoms and safety. Patient has signed adult voluntary form and has not signed medication consent and is placed in patient's chart. -Medications : Seroquel 50 mg nightly for mood stabilization/insomnia, cymbalta 90 mg daily for mood/anxiety. Added Vistaril 25 mg twice daily for anxiety. Can consider increasing this dose over the weekend if needed. -Ativan and Zyprexa PRN for agitation/aggression -CIWA protocol with Ativan PRN for ETOH withdrawal. Discontinue this today. -NRT -nicotine patch - on board for discharge planning. Encourage patient to participate in groups to work on coping skills. hopeful for discharge Wednesday morning back home if patient is improving psychiatrically. She is not interested in rehab at this time.
[2024-08-25] MEDS: hydrOXYzine pamoate 25 MG CAP PO SCH (13:00)
[2024-08-25] MEDS: QUEtiapine 25 MG TAB PO SCH (20:18)
[2024-08-26] MEDS: DULoxetine HCL 30 MG CAPSULE.DR PO SCH (09:55)
--- NOTE | 2024-08-26 14:19 | P.PN ---
Progress Note - Text Progress Note Date: 08/26/24 Dictation was produced using [employer] dictation software. Please excuse any grammatical, word or spelling errors. Interval history: Patient was seen in her room and was directable and agreeable to speak with the marketing underwriter in the office for psychiatric follow-up. The patient states that she has feeling good today, states that she did not get enough sleep last night, states that it was hard for her to fall asleep and was waking up 4-5 times. States her mood is "okay", states that depression and anxiety are at the moderate side, she rated depression at 4/10, and anxiety at 9/10. She denied any current SI/HI or self harm. She states that she is feeling safe, and is getting along well with every one. She states that her appetite is okay however she is not feeling that hungry. She state that she has been taking her medication, and denied any side effects. She denied any muscle stiffness, rigidity, abnormal movement, or drooling. Patient was advised on keeping good sleep hygiene. MENTAL STATUS EXAM: General Appearance: Patient appears to be tall, disheveled in appearance, improving eye contact, stated age is alert, attempts to cooperate more today. Patient appears to have improving hygiene and grooming. Behavior: Patient is seated without any agitated behavior. More cooperative t jadon. Speech: Patient's speech is fluent and nonpressured. [place], improving mildly, patient was smiling Mood/Affect: Patient reports their mood is " okay", affect is congruent and constricted. Improving mildly Suicidality/Homicidality: Patient denies having any homicidal ideation intent or plan. Denies any suicidal ideations intent or plan Perceptions: Patient denies any visual hallucinations and denies any auditory hallucinations Though content/process: There is no evidence of any delusional thought content and thought process is linear and goal-directed. [place], Improving mildly. Focused on discharge. Minimizing. Memory and concentration: AOX3, grossly intact for the purposes of this session Judgment and insight: improving mildly IMPRESSIONS: Mood disorder unspecified, likely bipolar disorder depressed episode versus major depressive disorder Suicidal ideations Alcohol abuse Nicotine dependence Assessment/Plan: Continue with current diagnosis. Patient continues to meet criteria for inpatient psychiatric admission for symptom stabilization and safety. Patient will be maintained on current psychotropic medication regimen, which include Seroquel 75 mg p.o. at bedtime which was increased on Wednesday from 50 mg, Cymbalta 90 mg p.o. daily, Vistaril 25 mg p.o. twice daily as needed was started on Wednesday to address the patient anxiety, no changes today. The patient denied any side effects, she denied any muscle stiffness, rigidity, abnormal movement, or drooling. Monitor for medication compliance and for any psychotropic medication side effects. Will continue to monitor ongoing response to treatment. Encouraged participation in milieu.
[2024-08-26] MEDS: IBUPROFEN 600 MG TAB PO PRN (15:18)
--- NOTE | 2024-08-27 09:28 | P.PN ---
Progress Note - Text Progress Note Date: 08/27/24 Dictation was produced using [employer] dictation software. Please excuse any grammatical, word or spelling errors. Interval history: Patient was seen in her room and was directable and agreeable to speak with the staff writer in the office for psychiatric follow-up. The patient states that she is feeling "okay," states that her sleep was not that great, reported that she was in bed for 30 minutes prior to falling a sleep, and she woke up multiple times. She reported that depression and anxiety to be at the moderate side, she rated depression at 4/10, and anxiety at 8-9/10. She denied any current SI/HI or self harm, denied any AVH. States that she has been trying to get out of her room, and reported that she feels safe. She has been taking her medications, she denied any side effects. She denied any muscle stiffness, rigidity, abnormal movement, or drooling. MENTAL STATUS EXAM: General Appearance: Patient appears to be tall, improving eye contact, stated age is alert, attempts to cooperate more today. Patient appears to have improving hygiene and grooming. Behavior: Patient is seated without any agitated behavior. More cooperative today. Speech: Patient's speech is fluent and nonpressured. [place], improving mildly Mood/Affect: Patient reports their mood is " okay", affect is congruent and constricted. Improving mildly Suicidality/Homicidality: Patient denies having any homicidal ideation intent or plan. Denies any suicidal ideations intent or plan Perceptions: Patient denies any visual hallucinations and denies any auditory hallucinations Though content/process: There is no evidence of any delusional thought content and thought process is linear and goal-directed. [place], Improving mildly. Focused on discharge. Minimizing. Memory and concentration: AOX3, grossly intact for the purposes of this session Judgment and insight: improving mildly IMPRESSIONS: Mood disorder unspecified, likely bipolar disorder depressed episode versus major depressive disorder Suicidal ideations Alcohol abuse Nicotine dependence Assessment/Plan: Continue with current diagnosis. Patient continues to meet criteria for inpatient psychiatric admission for symptom stabilization and safety. Patient will be maintained on current psychotropic medication regimen, was a plan to increase Seroquel to 100 mg p.o. at bedtime to address the patient current symptoms which include insomnia and off label for anxiety, will continue with her other medication Cymbalta 90 mg p.o. daily, Vistaril 25 mg p.o. twice daily to address the patient anxiety, psychoeducation was provided, risk, benefit and side effect discussed. The patient denied any side effects, she denied any muscle stiffness, rigidity, abnormal movement, or drooling. Monitor for medication compliance and for any psychotropic medication side effects. Will continue to monitor ongoing response to treatment. Encouraged participation in milieu.
[2024-08-27] MEDS: ACETAMINOPHEN TAB 325 MG TAB PO PRN (15:05)
[2024-08-27] MEDS: QUEtiapine 100 MG TAB PO SCH (20:38)
[2024-08-27 21:31] VITALS: RESP 16
[2024-08-28 08:42] VITALS: BP 87/68; PULSE 117; TEMP 97.8
--- NOTE | 2024-08-28 09:00 | P.DS ---
Providers Date of admission: 08/22/24 01:07 Expected date of discharge: 08/28/24 Attending physician: Bart Garcia MD Consults: 08/22/24 01:35 Consult Physician Routine Consulting Provider: Kareem Quintanilla Consult Reason/Comments: medical managment Do you want consulting provider notified?: Yes, Notify in am Primary care physician: Kareem Quintanilla - Discharge Diagnosis(es) (1) Unspecified mood [affective] disorder Current Visit: Yes Status: Acute Priority: High (2) Suicidal ideations Current Visit: Yes Status: Acute Priority: High (3) Alcohol abuse Current Visit: Yes Status: Acute Priority: Medium (4) Nicotine dependence Current Visit: Yes Status: Acute Priority: Low Hospital Course: Admission HPI: Admission note was completed by data analyst report writer "patient is a 29-year-old female, currently lives with her mother in a house, she is single she has 1 kid she is unemployed. Patient presented to the hospital yesterday and was evaluated by EPS nurse and according to note "Patient presented to ER related to attempted OD 2 days ago. Patient assessed in ER17 from [id number] with father at bedside per patient request. Patient observed to verbalize that she attempted to OD 2 days ago on multiple medications. Patient verbalizes that her friend 4-5 days ago and she has been having difficulty coping with this. Patient expresses passive suicidal ideation stating that she wishes she was not alive anymore. When asked if patient is still currently feeling suicidal, patient lacked eye contact, fidgeting with hands, and stating "I don't know". then stated "I don't know how I feel anymore". Patient appeared guarded and minimally sharing during assessment. Patient evasive and minimal with information when answering questions. Patient states that she was prescribed Buspar and Seroquel about a week ago by her PCP and has been sporatically compliant with Buspar and has not taken the Seroquel. Patient verbalizes okay appetite and terrible sleep. Patient verbalizes hx of self harm by cutting left arm with last incident 2 years ago. denies homicidal ideations. Denies auditory or visual hallucinations. Denies paranoia, and no delusional statements noted on assessment. Patient denies alcohol use, denies substance use, and verbalizes daily smoking a vape. " patient was seen today in bed and was agreeable to speak to data analyst report writer in the office. Patient had poor eye contact she is fairly concrete evasive and guarded. Claims that her friend recently committed suicide about 4 or 5 days ago. States that she has been grieving, feeling more depressed lately. States that she also drank about 2 or 3 drinks of tequila about a couple days ago. Also claims that about 3 nights ago she attempted to overdose on a small amount of oxycodone and her own Adderall. Denying any withdrawal symptoms at this time. Claims that she did not tell anybody, came to the hospital for suicidal thoughts for the past few days. Denies having any plan at this time. She claims that she came to the hospital on her own. Claims that she has been worried about her daughter because of her own thoughts about ending her life. States that she has been having high levels of anxiety, also describing having family issues at home and also dealing with custody with the baby's father. Claims that her sleep and appetite have been on and off. Patient denies any suicidal or homicidal ideations intent or plan. At this time patient denies any auditory or visual hallucinations. Patient denies any flight of ideas racing thoughts and increased in goal directed behavior. Patient admits to using cigarettes daily, denies any other recreational drug use except for the alcohol use/abuse as noted above." Hospital course: Upon admission to the unit patient was directable and agreeable to commence treatment and signed adult voluntary form. Patient was initially isolative, depressed however with time and treatment patient got along well with other patients on the unit and followed unit protocol. Patient was compliant with the medications and denied any side effects throughout hospital course. Patient was started on Seroquel 50 mg nightly for mood stabilization/insomnia, Cymbalta increased to 90 mg daily for mood/anxiety, Vistaril twice daily as needed for anxiety. Patient spoke of her stressors and engaged in therapy both group/activity therapy. Patient was also seen by medical team for history and physical exam. Throughout the course of the hospitalization patient gradually improved with regards to mood, anxiety, suicidal thoughts, sleep and became more future oriented with improved insight and judgment. On the day of discharge patient denied any suicidal or homicidal ideations intent or plan denied any auditory or visual hallucinations. Patient endorsed wanting to live for their health and family. The patient denied any access to guns or weapons. Patient denied any paranoia and did not endorse any delusions. Patient does have a significant history of substance abuse and was counseled on abstaining from all substances including alcohol and marijuana. Patient was offered however declined inpatient substance-abuse rehab. Patient elected to do outpatient substance use treatment program through their outpatient provider.. Patient was also counseled on the medications and need for regular compliance and was encouraged to follow-up with their outpatient appointment for mental health and also for primary care. Prior to discharge a family meeting will be arranged by social media marketer to answer any questions and ensure safety upon discharge incuding making sure that guns/weapons are either removed from the home or locked away. Mental status exam: General Appearance: Patient appears to be stated age is alert, pleasant, and cooperative. Patient is in no acute distress and has improved hygiene and grooming Behavior: Patient is calmly seated without any agitated behavior. Speech: Patient's speech is fluent and nonpressured. Mood/Affect: Patient reports their mood is "better", affect is congruent and euthymic. Suicidality/Homicidality: Patient denies having any suicidal or homicidal ideation intent or plan. Perceptions: Patient denies any auditory or visual hallucinations. Though content/process: There is no evidence of any delusional thought content and thought process is linear and goal-directed. More future oriented Memory and concentration: AOX3, grossly intact for the purposes of this session. Can spell "WORLD" backwards correctly. Judgment and insight: Chronically poor, however has improved with guarded prognosis Impression: mood disorder unspecified suicidal ideations alcohol abuse Nicotine dependence Plan: -Continue with discharge today as patient has improved and stabilized psychiatrically and is not currently an imminent threat to themself and/or others. Patient will remain at chronically elevated risk for harm to self and/or others due to their impulsivity and substance abuse. -Continue medications: Seroquel 50 mg nightly for mood stabilization/insomnia, Cymbalta 90 mg daily for mood/anxiety, Vistaril 50 mg twice daily as needed for anxiety. -Patient was counseled on the need for medication compliance and appropriate follow-up at mental health and also primary care for medical issues. Patient verbalized understanding and agreed. -Social work to help coordinate patients discharge today. also to ensure safe home environment that guns/weapons are either removed from the home or locked away. Social work also to arrange for patients follow up appointments with [facility] for psychiatric care along with follow up with primary care provider. -Patient counseled on abstaining from recreational drugs and marijuana and alcohol. Was informed/educated on the adverse effects on their physical and mental health. Patient verbally agreed and understood. Patient was offered substance abuse treatment however declined at this time. -Patient was instructed to return to the hospital or seek immediate medical care if their psychiatric or medical symptoms do worsen or reoccur. Allergies Allergy/AdvReac Type Severity Reaction Status Date / Time No Known Allergies Allergy Verified 08/22/24 13:30 Laboratory Results WBC 8.86 10*3/uL (4.50-10.00) 08/23/24 07:22 RBC 4.04 10*6/uL (4.10-5.20) L 08/23/24 07:22 Hgb 12.8 g/dL (12.0-15.0) 08/23/24 07:22 Hct 37.9 % (37.2-46.3) 08/23/24 07:22 MCV 93.8 fL (80.0-97.0) 08/23/24 07:22 MCH 31.7 pg (27.0-32.0) 08/23/24 07:22 MCHC 33.8 g/dL (32.0-37.0) 08/23/24 07:22 Plt Count 340 10*3/uL (140-440) 08/23/24 07:22 MPV 9.9 fL (9.5-12.2) 08/23/24 07:22 Immature Gran % (Auto) 0.2 % 08/23/24 07:22 Neutrophils % 57.9 % 08/23/24 07:22 Lymphocytes % 35.2 % 08/23/24 07:22 Monocytes % 3.7 % 08/23/24 07:22 Eosinophils % 2.8 % 08/23/24 07: Basophils % 0.2 % 08/23/24 07:22 Immature Gran # 0.02 10*3/uL (0.00-0.04) 08/23/24 07:22 Neutrophils # 5.12 10*3/uL (1.80-7.70) 08/23/24 07:22 Lymphocytes # 3.12 10*3/uL (0.90-5.00) 08/23/24 07:22 Monocytes # 0.33 10*3/uL (0.20-1.00) 08/23/24 07:22 Eosinophils # 0.25 10*3/uL (0.04-0.35) 08/23/24 07:22 Basophils # 0.02 10*3/uL (0.00-0.10) 08/23/24 07:22 Sodium 140 mmol/L (137-145) 08/23/24 07:22 Potassium 3.7 mmol/L (3.5-5.1) 08/23/24 07:22 Chloride 106 mmol/L (98-107) 08/23/24 07:22 Carbon Dioxide 26 mmol/L (22-30) 08/23/24 07:22 Anion Gap 8 mmol/L 08/23/24 07:22 BUN 6 mg/dL (7-17) L 08/23/24 07:22 Creatinine 0.65 mg/dL (0.52-1.04) 08/23/24 07:22 Est GFR (CKD-EPI)AfAm >90 (>60 ml/min/1.73 sqM) 08/23/24 07:22 Est GFR (CKD-EPI)NonAf >90 (>60 ml/min/1.73 sqM) 08/23/24 07:22 Glucose 92 mg/dL (74-99) 08/23/24 07:[address] Glu mg/dL 103 mg/dL 08/23/24 07:22 Hemoglobin A1c 5.2 % (<=6.0) 08/23/24 07:22 Calcium 9.4 mg/dL (8.4-10.2) 08/23/24 07:22 Total Bilirubin 0.4 mg/dL (0.2-1.3) 08/23/24 07:22 AST 18 U/L (14-36) 08/23/24 07:22 ALT 18 U/L (4-34) 08/23/24 07:22 Alkaline Phosphatase 55 U/L (38-126) 08/23/24 07:22 Total Protein 6.6 g/dL (6.3-8.2) 08/23/24 07:22 Albumin 3.7 g/dL (3.5-5.0) 08/23/24 07:22 Urine Color Yellow 08/24/24 11:06 Urine Appearance Cloudy (Clear) H 08/24/24 11:06 Urine pH 6.5 (5.0-8.0) 08/24/24 11:06 Ur Specific [place] 1.015 (1.001-1.035) 08/24/24 11:06 Urine Protein Negative (Negative) 08/24/24 11:06 Urine Glucose (UA) Negative (Negative) 08/24/24 11:06 Urine Ketones Negative (Negative) 08/24/24 11:06 Urine Blood Negative (Negative) 08/24/24 11:06 Urine Nitrite Negative (Negative) 08/24/24 11:06 Urine Bilirubin Negative (Negative) 08/24/24 11:06 Urine Urobilinogen 2.0 mg/dL (<2.0) 08/24/24 11:06 Ur Leukocyte Esterase Negative (Negative) 08/24/24 11:06 Urine WBC 2 /hpf (0-5) 08/24/24 11:06 Ur Squamous Epith Cells 4 /hpf (0-4) 08/24/24 11:06 Urine Mucus Many /hpf (None) H 08/24/24 11:06 Urine HCG, Qual Not Detected (Not Detectd) 08/24/24 11:06 Salicylates <1.0 mg/dL 08/21/24 18:20 Urine Opiates Screen Not Detected (NotDetected) 08/24/24 11:06 Ur Oxycodone Screen Not Detected (NotDetected) 08/24/24 11:06 Urine Methadone Screen Not Detected (NotDetected) 08/24/24 11:06 Acetaminophen <10.0 ug/mL 08/21/24 18:20 Ur Barbiturates Screen Not Detected (NotDetected) 08/24/24 11:06 U Tricyclic Antidepress Detected (NotDetected) H 08/24/24 11:06 Ur Phencyclidine Scrn Not Detected (NotDetected) 08/24/24 11:06 Ur Amphetamines Screen Not Detected (NotDetected) 08/24/24 11:06 U Methamphetamines Scrn Not Detected (NotDetected) 08/24/24 11:06 U Benzodiazepines Scrn Detected (NotDetected) H 08/24/24 11:06 Urine Cocaine Screen Detected (NotDetected) H 08/24/24 11:06 U Marijuana (THC) Screen Not Detected (NotDetected) 08/24/24 11:06 Serum Alcohol <10 mg/dL 08/21/24 18:20 SARS-CoV-2 (PCR) Not Detected (Not Detectd) 08/21/24 18:20 Vital Signs Temp 97.8 F 08/28/24 08:42 Pulse 117 H 08/28/24 08:42 Resp 16 08/27/24 21:00 BP 87/68 08/28/24 08:42 Pulse Ox 99 08/28/24 08:42 FiO2 Intake & Output 08/27/24 08/28/24 08/28/24 18:59 06:59 18:59 Weight 77.4 kg Patient Condition at Discharge: Stable Plan - Discharge Summary Discharge Rx Participant: Yes New Discharge Prescriptions: New DULoxetine HCL [Cymbalta] 90 mg PO DAILY 30 Days #90 cap Ibuprofen [Motrin] 600 mg PO Q6HR PRN tab PRN Reason: Moderate Pain (Scale 4 To 6) QUEtiapine [SEROquel] 100 mg PO HS 30 Days #30 tab hydrOXYzine pamoate [Vistaril] 50 mg PO BID PRN 30 Days #120 cap PRN Reason: Anxiety rOPINIRole HCL [Requip] 0.5 mg PO HS 30 Days #30 tablet Acetaminophen Tab [Tylenol] 650 mg PO Q4HR PRN tab PRN Reason: Mild Pain (Scale 1 To 3) Discontinued busPIRone HCl [Buspar] 10 mg PO TID PRN PRN Reason: Anxiety QUEtiapine [SEROquel] 50 mg PO HS Discharge Medication List Acetaminophen Tab [Tylenol] 650 mg PO Q4HR PRN tab 08/28/24 [Rx] DULoxetine HCL [Cymbalta] 90 mg PO DAILY 30 Days #90 cap 08/28/24 [Rx] Ibuprofen [Motrin] 600 mg PO Q6HR PRN tab 08/28/24 [Rx] QUEtiapine [SEROquel] 100 mg PO HS 30 Days #30 tab 08/28/24 [Rx] hydrOXYzine pamoate [Vistaril] 50 mg PO BID PRN 30 Days #120 cap 08/28/24 [Rx] rOPINIRole HCL [Requip] 0.5 mg PO HS 30 Days #30 tablet 08/28/24 [Rx] Follow up Appointment(s)/Referral(s): Kareem Quintanilla MD [Primary Care Provider] - 1-2 days Patient Instructions/Handouts: Mood Disorders (DC), Abuse of Alcohol (ED) Activity/Diet/Wound Care/Special Instructions: [facility] Discharge Info Avoid the use of street drugs and alcohol. Take all medications as prescribed. When you are in need of refills on your medications, please contact your outpatient medical provider and/or outpatient psychiatrist. Please go to your scheduled outpatient appointments for aftercare treatment. If symptoms return or become worse, call the crisis line at or and/or visit the nearest emergency room for assistance. National Suicide and Crisis Lifeline - call or text 912 Discharge Disposition: HOME SELF-CARE
== END 2024-08-28 12:20 | disposition home or self-care (01) | DRG 751 ==
LOC: EC 16:13 → 3MHU 08-22 01:07
PROVIDERS: ADMIT Psychiatry & Neurology Psychiatry; ATTEND Psychiatry & Neurology Psychiatry
DX: F39 Unspecified mood [affective] disorder (principal); F10.10 Alcohol abuse, uncomplicated; F17.210 Nicotine dependence, cigarettes, uncomplicated; F32.9 Major depressive disorder, single episode, unspecified; F41.9 Anxiety disorder, unspecified; F17.290 Nicotine dependence, other tobacco product, uncomplicated; F43.10 Post-traumatic stress disorder, unspecified; G47.00 Insomnia, unspecified; T42.4X2D Poisoning by benzodiazepines, intentional self-harm, subsequent encounter; T40.2X2D Poisoning by other opioids, intentional self-harm, subsequent encounter; T40.5X2 Poisoning by cocaine, intentional self-harm; T51.92XD Toxic effect of unspecified alcohol, intentional self-harm, subsequent encounter; Z79.899 Other long term (current) drug therapy; Z56.0 Unemployment, unspecified; Z91.51 Personal history of suicidal behavior; Z91.52 Personal history of nonsuicidal self-harm; Z63.4 Disappearance and death of family member; Z11.52 Encounter for screening for COVID-19
CPT/HCPCS: 36415; 80053; 80143; 80179; 80306; 80320; 81001; 81025; 82075; 83036; 85025; 87635; 93005; 96360; 96361; 99285